=== PATIENT | female | born 1960 | race Caucasian/White ===

== ENCOUNTER 2021-10-23 18:38 | Inpatient (IN) ==
[2021-10-23] MEDS ORDERED: 0.9 % Sodium Chloride 2,000 ML ONE (18:56)
[2021-10-23] MEDS ORDERED: Heparin 1,000 UNITS/500 mL 500 ML ONE ×2 (18:56→19:30)
[2021-10-23] MEDS ORDERED: *HR* Heparin 10,000 UNIT/10 ML VIAL ONE ×2 (18:56→19:30)
[2021-10-23] MEDS ORDERED: ISOVUE-370 200 ML INFUS..BTL ONE ×2 (18:57→19:30)
[2021-10-23] MEDS ORDERED: Nitroglycerin 1,000 MCG/5 ML VIAL IV ONE ×2 (18:57→19:30)
[2021-10-23] MEDS ORDERED: 0.9 % Sodium Chloride 1,000 ML ONE ×2 (19:30→20:48)
[2021-10-23] MEDS ORDERED: *HR* FentaNYL (PF) 100 MCG/2 ML VIAL ONE (20:47)
[2021-10-23] MEDS ORDERED: *HR* Midazolam HCl 2 MG/2 ML VIAL ONE (20:48)
[2021-10-23] MEDS ORDERED: Naloxone 0.4 MG/ML INJ IVP PRN (22:01)
[2021-10-23] MEDS ORDERED: *HR* Heparin 5,000 UNIT/ML VIAL IVP PRN ×2 (22:03)
[2021-10-23] MEDS ORDERED: Perflutren Lipid Microsphere 1.3 ML in 0.9 % Sodium Chloride 8.7 ML IVP PRN (22:04)
[2021-10-23] MEDS ORDERED: *HR* Digoxin 0.5 MG/2 ML AMPUL IVP ONE (22:13)
[2021-10-23] MEDS: Ringers Solution, Lactated 1,000 ML IVC SCH (22:50)
[2021-10-23] MEDS: Melatonin 3 MG TABLET PO PRN (22:51)
[2021-10-23] MEDS: *HR* Promethazine 25 MG/ML VIAL IM PRN (22:51)
[2021-10-23] MEDS ORDERED: Haloperidol Lactate 5 MG/ML VIAL IVP ONE (23:27)
[2021-10-23] MEDS ORDERED: *HR* LORazepam 2 MG/ML VIAL IVP ONE (23:55)
[2021-10-24 03:00] LABS: Albumin 3.4 g/dL (3.5-5.7); Albumin/Globulin Ratio 1.1 (1.1-2.2); Bilirubin,Total 0.7 mg/dL (0.3-1.0); Globulin 3.1 g/dL (2.4-3.5); Magnesium 2.1 mg/dL (1.6-2.6); Phosphorous 3.2 mg/dL (2.7-4.5); Total Protein 6.5 g/dL (6.4-8.9)
[2021-10-24] MEDS: Heparin 25,000UNIT/250ML 1/2NS 25,000 UNIT/250 ML IV.SOLN IVC SCH ×2 (03:25→17:55)
[2021-10-24 04:07] LABS: Bacteria,Urine Few per hpf (None-Few); Bilirubin,Urine Negative (Negative); Blood,Urine Negative (Negative); Clarity,Urine Clear (Clear); Color,Urine Colorless (Yellow); Glucose,Urine (UA) Normal (Normal); Hyaline Casts,Urine Few per lpf (None Seen); Ketones,Urine Negative (Negative); Leukocyte Esterase,Urine Small (Negative); Mucus,Urine Few per lpf (None-Few); Nitrite,Urine Negative (Negative); Protein,Urine Trace mg/dL (Neg-Trace); RBC,Urine 0-3 per hpf (0-3); Specific Gravity,Urine 1.021 (1.010-1.025); Squamous Epithelial Cell,Urine Few per hpf (None-Few); Urobilinogen,Urine Normal (Normal)
[2021-10-24 04:15] LABS: Protein/Creatinine Ratio,Urine 0.55 mg/mg (0.00-0.20); Sodium, Urine 28.5 mEq/L
[2021-10-24] MEDS ORDERED: *HR* Digoxin 0.5 MG/2 ML AMPUL IVP ONE ×2 (06:00→14:00)
[2021-10-24] MEDS ORDERED: Ringers Solution, Lactated 1,000 ML IVC ONE (07:54)
[2021-10-24] MEDS: Potassium Chloride Elixir 20 MEQ/15 ML UDC PO SCH (08:27)
[2021-10-24] MEDS: Ringers Solution, Lactated 1,000 ML IVC SCH ×4 (08:28→17:58)
[2021-10-24 09:54] LABS: Thyroid Stimulating Hormone 3.657 mcIU/mL (0.340-5.600); Uric Acid 7.1 mg/dL (2.3-7.6)
[2021-10-24 10:28] LABS: Heparin anti-factor XA UFH 0.24 IU/mL (0.30-0.70); INR 1.1; Prothrombin Time 11.9 Seconds (9.4-12.1)
[2021-10-24 12:32] LABS: Basophils # 0.1 K/mcL (0.0-0.2); Basophils % 0.2 %; Eosinophils % 0.1 %; Hematocrit 33.4 % (35.3-44.9); Hemoglobin 11.8 g/dL (11.5-15.4); Immature Granulocytes % 1.5 % (0-4); Lymphocytes # 1.2 K/mcL (0.6-4.6); Lymphocytes % 5.6 %; Mean Corpuscular HGB Conc 35.3 g/dL (31.6-35.5); Mean Corpuscular Hemoglobin 32.7 pg (28.0-33.3); Mean Corpuscular Volume 92.5 fL (83.0-100.0); Mean Platelet Volume 12.1 fL (9.4-12.4); Monocytes # 1.1 K/mcL (0.0-1.3); Neutrophils # 18.9 K/mcL (1.6-8.9); Platelet Count 167 K/mcL (140-400); Red Blood Count 3.61 M/mcL (3.82-4.97); Red Cell Distribution Width 13.4 % (11.5-14.5); Segmented Neutrophils % 87.6 %; White Blood Count 21.6 K/mcL (4.3-11.1)
[2021-10-24] MEDS ORDERED: Saline Nasal Spray 44 ML BOTTLE NS PRN (13:51)
[2021-10-24] MEDS: Colchicine 0.6 MG TABLET PO SCH (14:52)
[2021-10-24] MEDS: Ondansetron 4 MG/2 ML VIAL IVP PRN (18:01)
[2021-10-24] MEDS: Melatonin 3 MG TABLET PO PRN (22:20)
[2021-10-25] MEDS: Acetaminophen 325 MG TABLET PO PRN (03:24)
[2021-10-25 03:46] LABS: Calcium 9.3 mg/dL (8.6-10.3); Potassium 4.5 mEq/L (3.5-5.1)
[2021-10-25 05:48] LABS: Basophils # 0.1 K/mcL (0.0-0.2); Basophils % 0.2 %; Eosinophils # 0.1 K/mcL (0.0-0.6); Eosinophils % 0.5 %; Hematocrit 28.1 % (35.3-44.9); Hemoglobin 10.1 g/dL (11.5-15.4); Lymphocytes # 2.1 K/mcL (0.6-4.6); Lymphocytes % 9.6 %; Mean Corpuscular HGB Conc 35.9 g/dL (31.6-35.5); Mean Corpuscular Hemoglobin 33.1 pg (28.0-33.3); Mean Corpuscular Volume 92.1 fL (83.0-100.0); Mean Platelet Volume 12.3 fL (9.4-12.4); Monocytes # 1.4 K/mcL (0.0-1.3); Monocytes % 6.3 %; Neutrophils # 17.7 K/mcL (1.6-8.9); Platelet Count 184 K/mcL (140-400); Red Blood Count 3.05 M/mcL (3.82-4.97); Red Cell Distribution Width 13.7 % (11.5-14.5); Segmented Neutrophils % 80.4 %
[2021-10-25] MEDS ORDERED: Ringers Solution, Lactated 500 ML IVC SCH (06:45)
[2021-10-25] MEDS: Aspirin Enteric Coated 81 MG Tablet PO SCH (09:38)
[2021-10-25] MEDS: Colchicine 0.6 MG TABLET PO SCH ×2 (09:38→21:52)
[2021-10-25] MEDS: Potassium Chloride Elixir 20 MEQ/15 ML UDC PO SCH (09:39)
[2021-10-25] MEDS: Ondansetron 4 MG/2 ML VIAL IVP PRN (09:41)
[2021-10-25] MEDS ORDERED: Dextrose Gel 15 GM/37.5 ML TUBE PO PRN ×2 (11:04)
[2021-10-25] MEDS ORDERED: D5% in Water 1,000 ML IVC PRN (11:04)
[2021-10-25] MEDS ORDERED: *HR* Dextrose 50 % in Water (Syg) 50 ML SYRINGE IVP PRN (11:04)
[2021-10-25] MEDS: Insulin LISPRO 300 UNITS/3 ML VIAL SUBQ SCH ×2 (13:06→16:51)
[2021-10-25] MEDS: allopurinoL 300 MG TABLET PO SCH (13:06)
[2021-10-25] MEDS: Heparin 25,000UNIT/250ML 1/2NS 25,000 UNIT/250 ML IV.SOLN IVC SCH (13:09)
[2021-10-25] MEDS: *HR* Promethazine 25 MG/ML VIAL IM PRN (21:51)
[2021-10-25] MEDS: traZODone 50 MG TABLET PO SCH (21:52)
[2021-10-25] MEDS: Melatonin 3 MG TABLET PO PRN (21:52)
[2021-10-26] MEDS: Acetaminophen 325 MG TABLET PO PRN (01:29)
[2021-10-26 05:01] LABS: Basophils # 0.1 K/mcL (0.0-0.2); Basophils % 0.3 %; Eosinophils # 0.1 K/mcL (0.0-0.6); Eosinophils % 0.6 %; Hematocrit 29.4 % (35.3-44.9); Hemoglobin 10.2 g/dL (11.5-15.4); Immature Granulocytes % 4.6 % (0-4); Lymphocytes # 2.3 K/mcL (0.6-4.6); Lymphocytes % 11.6 %; Mean Corpuscular HGB Conc 34.7 g/dL (31.6-35.5); Mean Corpuscular Hemoglobin 32.7 pg (28.0-33.3); Mean Corpuscular Volume 94.2 fL (83.0-100.0); Mean Platelet Volume 11.4 fL (9.4-12.4); Monocytes # 1.3 K/mcL (0.0-1.3); Monocytes % 6.8 %; Platelet Count 251 K/mcL (140-400); Red Blood Count 3.12 M/mcL (3.82-4.97); Red Cell Distribution Width 14.1 % (11.5-14.5); Segmented Neutrophils % 76.1 %; White Blood Count 19.7 K/mcL (4.3-11.1)
[2021-10-26 05:26] LABS: BUN/Creatinine Ratio 38 (6-26); Blood Urea Nitrogen 31 mg/dL (8-23); Calcium 9.3 mg/dL (8.6-10.3); Carbon Dioxide 24 mEq/L (23-29); Chloride 102 mEq/L (98-107); Glucose 226 mg/dL (70-105); Osmolality,Calculated 288 (280-300); Potassium 3.1 mEq/L (3.5-5.1); Sodium 132 mEq/L (136-145); eGFR For African Americans > 60 (> 60); eGFR For Non-African Americans > 60 (> 60)
[2021-10-26] MEDS: Heparin 25,000UNIT/250ML 1/2NS 25,000 UNIT/250 ML IV.SOLN IVC SCH ×2 (07:13→22:33)
[2021-10-26] MEDS: Colchicine 0.6 MG TABLET PO SCH (08:09)
[2021-10-26] MEDS: Insulin LISPRO 300 UNITS/3 ML VIAL SUBQ SCH ×3 (08:09→17:43)
[2021-10-26] MEDS: allopurinoL 300 MG TABLET PO SCH (08:10)
[2021-10-26] MEDS: Aspirin Enteric Coated 81 MG Tablet PO SCH (08:10)
[2021-10-26] MEDS ORDERED: Perflutren Lipid Microsphere 1.3 ML in 0.9 % Sodium Chloride 8.7 ML IVP PRN (08:41)
[2021-10-26] MEDS ORDERED: 0.9 % Sodium Chloride 1,000 ML IVC ONE (08:54)
[2021-10-26] MEDS ORDERED: Amiodarone Premix 360 MG/200 ML BAG IVC ONE (12:18)
[2021-10-26] MEDS ORDERED: Amiodarone Premix 150 MG/100 ML BAG IVPB ONE (12:34)
[2021-10-26] MEDS: Piperacillin/Tazobactam 3.375 GM in 0.9 % Sodium Chloride Mini Bag 100 ML IVPB SCH (15:11)
[2021-10-26] MEDS: Aspirin 325 MG TABLET PO SCH ×2 (15:12→20:18)
[2021-10-26] MEDS: Amiodarone Premix 360 MG/200 ML BAG IVC SCH ×2 (20:17→20:25)
[2021-10-26] MEDS: traZODone 50 MG TABLET PO SCH (20:20)
[2021-10-27] MEDS: Piperacillin/Tazobactam 3.375 GM in 0.9 % Sodium Chloride Mini Bag 100 ML IVPB SCH ×3 (00:31→15:20)
[2021-10-27] MEDS: Acetaminophen 325 MG TABLET PO PRN (00:57)
[2021-10-27] MEDS: Aspirin 325 MG TABLET PO SCH ×3 (07:59→21:13)
[2021-10-27] MEDS: allopurinoL 300 MG TABLET PO SCH (08:00)
[2021-10-27] MEDS: Insulin LISPRO 300 UNITS/3 ML VIAL SUBQ SCH ×3 (08:01→16:12)
[2021-10-27] MEDS: Amiodarone Premix 360 MG/200 ML BAG IVC SCH (09:11)
[2021-10-27 09:40] LABS: Basophils # 0.1 K/mcL (0.0-0.2); Basophils % 0.3 %; Eosinophils # 0.2 K/mcL (0.0-0.6); Eosinophils % 1.1 %; Hematocrit 30.7 % (35.3-44.9); Hemoglobin 10.4 g/dL (11.5-15.4); Immature Granulocytes % 3.5 % (0-4); Lymphocytes # 2.7 K/mcL (0.6-4.6); Lymphocytes % 12.3 %; Mean Corpuscular HGB Conc 33.9 g/dL (31.6-35.5); Mean Corpuscular Hemoglobin 32.3 pg (28.0-33.3); Mean Corpuscular Volume 95.3 fL (83.0-100.0); Mean Platelet Volume 11.1 fL (9.4-12.4); Monocytes % 4.8 %; Neutrophils # 16.9 K/mcL (1.6-8.9); Platelet Count 320 K/mcL (140-400); Red Blood Count 3.22 M/mcL (3.82-4.97); Red Cell Distribution Width 14.3 % (11.5-14.5); White Blood Count 21.7 K/mcL (4.3-11.1)
[2021-10-27 10:00] LABS: Alanine Aminotransferase 39 Units/L (7-52); Albumin 2.6 g/dL (3.5-5.7); Albumin/Globulin Ratio 0.9 (1.1-2.2); Alkaline Phosphatase 84 Units/L (34-104); Aspartate Amino Transferase 29 Units/L (13-39); BUN/Creatinine Ratio 27 (6-26); Bilirubin,Total 0.4 mg/dL (0.3-1.0); Blood Urea Nitrogen 23 mg/dL (8-23); Calcium 8.9 mg/dL (8.6-10.3); Carbon Dioxide 21 mEq/L (23-29); Chloride 100 mEq/L (98-107); Glucose 176 mg/dL (70-105); Magnesium 1.6 mg/dL (1.6-2.6); Osmolality,Calculated 276 (280-300); Potassium 3.9 mEq/L (3.5-5.1); Sodium 129 mEq/L (136-145); Total Protein 5.6 g/dL (6.4-8.9); eGFR For African Americans > 60 (> 60); eGFR For Non-African Americans > 60 (> 60)
[2021-10-27 10:30] LABS: Troponin I 0.06 ng/mL (< 0.04)
[2021-10-27 12:49] LABS: Adenovirus Not Detected (Not Detect); Bordetella Pertussis Not Detected (Not Detect); Chlamydophila pneumoniae Not Detected (Not Detect); Coronavirus 229E Not Detected (Not Detect); Coronavirus HKU1 Not Detected (Not Detect); Coronavirus NL63 Not Detected (Not Detect); Coronavirus OC43 Not Detected (Not Detect); Human Metapneumovirus Not Detected (Not Detect); Human Rhinovirus/Enterovirus Not Detected (Not Detect); Influenza A Subtype 2009 H1 Not Detected (Not Detect); Influenza B Not Detected (Not Detect); Mycoplasma pneumoniae Not Detected (Not Detect); Parainfluenza Virus 1 Not Detected (Not Detect); Parainfluenza Virus 2 Not Detected (Not Detect); Parainfluenza Virus 3 Not Detected (Not Detect); Parainfluenza Virus 4 Not Detected (Not Detect); Respiratory Syncytial Virus Not Detected (Not Detect); SARS-CoV-2 Not Detected (Not Detect)
[2021-10-27] MEDS: Heparin 25,000UNIT/250ML 1/2NS 25,000 UNIT/250 ML IV.SOLN IVC SCH (17:01)
[2021-10-27] MEDS: Ondansetron 4 MG/2 ML VIAL IVP PRN (18:10)
[2021-10-27] MEDS: traZODone 50 MG TABLET PO SCH (21:13)
[2021-10-28] MEDS: Amiodarone Premix 360 MG/200 ML BAG IVC SCH ×3 (00:10→23:38)
[2021-10-28] MEDS: Piperacillin/Tazobactam 3.375 GM in 0.9 % Sodium Chloride Mini Bag 100 ML IVPB SCH ×4 (00:11→23:37)
[2021-10-28] MEDS: Aspirin 325 MG TABLET PO SCH ×3 (07:41→20:43)
[2021-10-28] MEDS: allopurinoL 300 MG TABLET PO SCH (07:41)
[2021-10-28] MEDS: Insulin LISPRO 300 UNITS/3 ML VIAL SUBQ SCH ×3 (07:58→15:36)
[2021-10-28 10:32] LABS: Basophils # 0.1 K/mcL (0.0-0.2); Basophils % 0.4 %; Eosinophils # 0.2 K/mcL (0.0-0.6); Eosinophils % 0.9 %; Hematocrit 30.8 % (35.3-44.9); Hemoglobin 10.4 g/dL (11.5-15.4); Immature Granulocytes % 2.9 % (0-4); Lymphocytes % 9.4 %; Mean Corpuscular HGB Conc 33.8 g/dL (31.6-35.5); Mean Corpuscular Hemoglobin 32.7 pg (28.0-33.3); Mean Corpuscular Volume 96.9 fL (83.0-100.0); Monocytes % 4.7 %; Neutrophils # 17.4 K/mcL (1.6-8.9); Platelet Count 395 K/mcL (140-400); Red Blood Count 3.18 M/mcL (3.82-4.97); Red Cell Distribution Width 14.3 % (11.5-14.5); Segmented Neutrophils % 81.7 %; White Blood Count 21.3 K/mcL (4.3-11.1)
[2021-10-28 10:57] LABS: BUN/Creatinine Ratio 21 (6-26); Blood Urea Nitrogen 15 mg/dL (8-23); Carbon Dioxide 23 mEq/L (23-29); Chloride 104 mEq/L (98-107); Glucose 174 mg/dL (70-105); Osmolality,Calculated 283 (280-300); Potassium 3.4 mEq/L (3.5-5.1); Sodium 134 mEq/L (136-145); eGFR For African Americans > 60 (> 60); eGFR For Non-African Americans > 60 (> 60)
[2021-10-28] MEDS: Ondansetron 4 MG/2 ML VIAL IVP PRN (13:30)
[2021-10-28] MEDS: Heparin 25,000UNIT/250ML 1/2NS 25,000 UNIT/250 ML IV.SOLN IVC SCH (13:35)
[2021-10-28 14:35] LABS: Magnesium 1.8 mg/dL (1.6-2.6)
[2021-10-28] MEDS: traZODone 50 MG TABLET PO SCH (20:43)
[2021-10-29] MEDS: allopurinoL 300 MG TABLET PO SCH (08:37)
[2021-10-29] MEDS: Acetaminophen 325 MG TABLET PO PRN (08:37)
[2021-10-29] MEDS: Aspirin 325 MG TABLET PO SCH ×3 (08:38→20:03)
[2021-10-29] MEDS: Piperacillin/Tazobactam 3.375 GM in 0.9 % Sodium Chloride Mini Bag 100 ML IVPB SCH ×2 (08:38→15:44)
[2021-10-29] MEDS: Insulin LISPRO 300 UNITS/3 ML VIAL SUBQ SCH ×3 (08:39→17:17)
[2021-10-29] MEDS: Ondansetron 4 MG/2 ML VIAL IVP PRN (08:40)
[2021-10-29] MEDS ORDERED: *HR* Digoxin 0.5 MG/2 ML AMPUL IVP ONE (08:45)
[2021-10-29] MEDS ORDERED: *HR* LORazepam 0.5 MG TABLET PO ONE (09:34)
[2021-10-29] MEDS: polyethylene glycoL 3350 17 GM POWD.PACK PO SCH (10:02)
[2021-10-29 11:08] LABS: Hemoglobin 10.5 g/dL (11.5-15.4); Mean Corpuscular Volume 97.2 fL (83.0-100.0); Mean Platelet Volume 10.5 fL (9.4-12.4); Red Cell Distribution Width 14.6 % (11.5-14.5)
[2021-10-29 11:09] LABS: Mean Corpuscular HGB Conc 33.9 g/dL (31.6-35.5); Mean Corpuscular Hemoglobin 32.9 pg (28.0-33.3); Platelet Count 520 K/mcL (140-400); Red Blood Count 3.19 M/mcL (3.82-4.97)
[2021-10-29 11:16] LABS: White Blood Count 30.1 K/mcL (4.3-11.1)
[2021-10-29 11:40] LABS: Alanine Aminotransferase 68 Units/L (7-52); Albumin 2.8 g/dL (3.5-5.7); Albumin/Globulin Ratio 0.8 (1.1-2.2); Alkaline Phosphatase 98 Units/L (34-104); Aspartate Amino Transferase 49 Units/L (13-39); BUN/Creatinine Ratio 16 (6-26); Bilirubin,Total 0.5 mg/dL (0.3-1.0); Blood Urea Nitrogen 14 mg/dL (8-23); Calcium 8.7 mg/dL (8.6-10.3); Carbon Dioxide 18 mEq/L (23-29); Chloride 99 mEq/L (98-107); Globulin 3.4 g/dL (2.4-3.5); Glucose 225 mg/dL (70-105); Magnesium 1.7 mg/dL (1.6-2.6); Osmolality,Calculated 276 (280-300); Potassium 4.3 mEq/L (3.5-5.1); Sodium 129 mEq/L (136-145); Total Protein 6.2 g/dL (6.4-8.9); eGFR For African Americans > 60 (> 60); eGFR For Non-African Americans > 60 (> 60)
[2021-10-29 11:41] LABS: Lymphocytes # 0.6 K/mcL (0.6-4.6); Neutrophils # 25.9 K/mcL (1.6-8.9); Platelet Estimate Increased (Normal)
[2021-10-29] MEDS: *HR* Digoxin 0.5 MG/2 ML AMPUL IVP SCH ×2 (14:14→20:03)
[2021-10-29] MEDS ORDERED: Furosemide 20 MG/2 ML VIAL IVP ONE (15:09)
[2021-10-29] MEDS: Heparin 25,000UNIT/250ML 1/2NS 25,000 UNIT/250 ML IV.SOLN IVC SCH (19:50)
[2021-10-29] MEDS: Melatonin 3 MG TABLET PO PRN (20:03)
[2021-10-29] MEDS: traZODone 50 MG TABLET PO SCH (20:03)
[2021-10-30] MEDS: Piperacillin/Tazobactam 3.375 GM in 0.9 % Sodium Chloride Mini Bag 100 ML IVPB SCH (00:58)
[2021-10-30 01:11] LABS: Basophils % 0.3 %; Eosinophils % 0.2 %; Hemoglobin 10.6 g/dL (11.5-15.4); Mean Platelet Volume 10.3 fL (9.4-12.4)
[2021-10-30 01:12] LABS: Basophils # 0.1 K/mcL (0.0-0.2); Eosinophils # 0.1 K/mcL (0.0-0.6); Hematocrit 30.9 % (35.3-44.9); Immature Granulocytes % 1.6 % (0-4); Lymphocytes # 2.2 K/mcL (0.6-4.6); Lymphocytes % 6.2 %; Mean Corpuscular HGB Conc 34.3 g/dL (31.6-35.5); Mean Corpuscular Hemoglobin 33.2 pg (28.0-33.3); Mean Corpuscular Volume 96.9 fL (83.0-100.0); Monocytes # 1.2 K/mcL (0.0-1.3); Monocytes % 3.4 %; Platelet Count 543 K/mcL (140-400); Red Blood Count 3.19 M/mcL (3.82-4.97); Red Cell Distribution Width 14.5 % (11.5-14.5); Segmented Neutrophils % 88.3 %
[2021-10-30 01:16] LABS: White Blood Count 35.1 K/mcL (4.3-11.1)
[2021-10-30 01:36] LABS: BUN/Creatinine Ratio 20 (6-26); Blood Urea Nitrogen 16 mg/dL (8-23); Calcium 8.5 mg/dL (8.6-10.3); Carbon Dioxide 18 mEq/L (23-29); Chloride 97 mEq/L (98-107); Glucose 121 mg/dL (70-105); Osmolality,Calculated 258 (280-300); Potassium 4.2 mEq/L (3.5-5.1); Sodium 123 mEq/L (136-145); eGFR For African Americans > 60 (> 60); eGFR For Non-African Americans > 60 (> 60)
[2021-10-30] MEDS: Heparin 25,000UNIT/250ML 1/2NS 25,000 UNIT/250 ML IV.SOLN IVC SCH (02:34)
[2021-10-30] MEDS: Aspirin 325 MG TABLET PO SCH (08:22)
[2021-10-30] MEDS: cefTRIAXone 2,000 MG in 0.9 % Sodium Chloride Mini Bag 100 ML IVPB SCH (08:23)
[2021-10-30] MEDS: allopurinoL 300 MG TABLET PO SCH (08:23)
[2021-10-30] MEDS ORDERED: *HR* Digoxin 0.125 MG TABLET PO SCH (09:00)
[2021-10-30 09:04] LABS: VBG HCO3 19 mEq/L (21-27); VBG PCO2 29 mmHg (41-51); VBG PH 7.41 pH Units (7.32-7.42); VBG PO2 171 mmHg (25-50)
[2021-10-30 09:23] LABS: BUN/Creatinine Ratio 21 (6-26); Blood Urea Nitrogen 16 mg/dL (8-23); Calcium 8.8 mg/dL (8.6-10.3); Carbon Dioxide 20 mEq/L (23-29); Chloride 99 mEq/L (98-107); Glucose 110 mg/dL (70-105); Osmolality,Calculated 268 (280-300); Potassium 4.6 mEq/L (3.5-5.1); Sodium 128 mEq/L (136-145); eGFR For African Americans > 60 (> 60); eGFR For Non-African Americans > 60 (> 60)
[2021-10-30] MEDS: Insulin LISPRO 300 UNITS/3 ML VIAL SUBQ SCH ×3 (09:35→17:10)
[2021-10-30 12:25] LABS: C-Reactive Protein 265 mg/L (Less than 10)
[2021-10-30] MEDS: polyethylene glycoL 3350 17 GM POWD.PACK PO SCH (13:17)
[2021-10-30] MEDS: *HR* Heparin 5,000 UNIT/ML VIAL SQ SCH (17:05)
[2021-10-30] MEDS: Ipratropium/Albuterol Neb 3 ML IH PRN (17:40)
[2021-10-30 17:44] LABS: ABG Base Excess -5 mEq/L (-2 to 3); ABG HCO3 18 mEq/L (21-27); ABG Oxygen Saturation 96 % (95-98); ABG PCO2 24 mmHg (35-45); ABG PH 7.48 pH Units (7.32-7.45); ABG PO2 72 mmHg (85-104); ABG TCO2 18 mEq/L (20-26)
[2021-10-30] MEDS: Colchicine 0.6 MG TABLET PO SCH (20:54)
[2021-10-30] MEDS: traZODone 50 MG TABLET PO SCH (20:54)
[2021-10-30] MEDS: Acetaminophen 325 MG TABLET PO PRN (20:54)
[2021-10-30] MEDS: Melatonin 3 MG TABLET PO PRN (20:54)
[2021-10-31] MEDS: Ipratropium/Albuterol Neb 3 ML IH PRN (00:32)
[2021-10-31 00:34] LABS: ABG Base Excess -4 mEq/L (-2 to 3); ABG HCO3 19 mEq/L (21-27); ABG Oxygen Saturation 96 % (95-98); ABG PCO2 26 mmHg (35-45); ABG PH 7.47 pH Units (7.32-7.45); ABG PO2 76 mmHg (85-104); ABG TCO2 20 mEq/L (20-26)
[2021-10-31 04:25] LABS: Basophils # 0.1 K/mcL (0.0-0.2); Basophils % 0.3 %; Eosinophils # 0.1 K/mcL (0.0-0.6); Eosinophils % 0.5 %; Hematocrit 30.6 % (35.3-44.9); Hemoglobin 10.3 g/dL (11.5-15.4); Immature Granulocytes % 1.5 % (0-4); Lymphocytes # 1.9 K/mcL (0.6-4.6); Lymphocytes % 8.6 %; Mean Corpuscular HGB Conc 33.7 g/dL (31.6-35.5); Mean Corpuscular Hemoglobin 32.6 pg (28.0-33.3); Mean Corpuscular Volume 96.8 fL (83.0-100.0); Mean Platelet Volume 10.1 fL (9.4-12.4); Monocytes % 4.3 %; Neutrophils # 18.8 K/mcL (1.6-8.9); Platelet Count 619 K/mcL (140-400); Red Blood Count 3.16 M/mcL (3.82-4.97); Red Cell Distribution Width 14.6 % (11.5-14.5); Segmented Neutrophils % 84.8 %; White Blood Count 22.2 K/mcL (4.3-11.1)
[2021-10-31 04:35] LABS: INR 1.4
[2021-10-31 04:43] LABS: Alanine Aminotransferase 216 Units/L (7-52); Albumin 2.6 g/dL (3.5-5.7); Albumin/Globulin Ratio 0.8 (1.1-2.2); Alkaline Phosphatase 90 Units/L (34-104); Aspartate Amino Transferase 90 Units/L (13-39); BUN/Creatinine Ratio 25 (6-26); Bilirubin,Direct 0.1 mg/dL (0.0-0.2); Bilirubin,Indirect 0.3 mg/dL (0.0-1.0); Bilirubin,Total 0.4 mg/dL (0.3-1.0); Blood Urea Nitrogen 20 mg/dL (8-23); Calcium 8.3 mg/dL (8.6-10.3); Carbon Dioxide 22 mEq/L (23-29); Chloride 98 mEq/L (98-107); Globulin 3.1 g/dL (2.4-3.5); Glucose 154 mg/dL (70-105); Osmolality,Calculated 266 (280-300); Potassium 4.4 mEq/L (3.5-5.1); Sodium 125 mEq/L (136-145); Total Protein 5.7 g/dL (6.4-8.9); eGFR For African Americans > 60 (> 60); eGFR For Non-African Americans > 60 (> 60)
[2021-10-31] MEDS: *HR* Heparin 5,000 UNIT/ML VIAL SQ SCH ×2 (05:09→17:27)
[2021-10-31] MEDS: polyethylene glycoL 3350 17 GM POWD.PACK PO SCH (09:12)
[2021-10-31] MEDS: allopurinoL 300 MG TABLET PO SCH (09:12)
[2021-10-31] MEDS: Colchicine 0.6 MG TABLET PO SCH ×2 (09:12→21:43)
[2021-10-31] MEDS: cefTRIAXone 2,000 MG in 0.9 % Sodium Chloride Mini Bag 100 ML IVPB SCH (09:12)
[2021-10-31] MEDS: Aspirin 81 MG TAB.CHEW PO SCH (09:12)
[2021-10-31] MEDS: Insulin LISPRO 300 UNITS/3 ML VIAL SUBQ SCH ×3 (09:14→17:27)
[2021-10-31] MEDS ORDERED: Perflutren Lipid Microsphere 1.3 ML in 0.9 % Sodium Chloride 8.7 ML IVP PRN (13:57)
[2021-10-31] MEDS: Furosemide 40 MG TABLET PO SCH (15:29)
[2021-10-31] MEDS: Ipratropium/Albuterol Neb 3 ML IH SCH ×2 (15:41→20:26)
[2021-10-31] MEDS: Melatonin 3 MG TABLET PO PRN (21:43)
[2021-10-31] MEDS: traZODone 50 MG TABLET PO SCH (21:43)
[2021-10-31] MEDS: Acetaminophen 325 MG TABLET PO PRN (22:36)
[2021-11-01] MEDS: Ipratropium/Albuterol Neb 3 ML IH SCH ×4 (05:01→20:58)
[2021-11-01] MEDS: *HR* Heparin 5,000 UNIT/ML VIAL SQ SCH ×2 (05:24→19:13)
[2021-11-01 05:55] LABS: Basophils # 0.1 K/mcL (0.0-0.2); Basophils % 0.3 %; Eosinophils # 0.1 K/mcL (0.0-0.6); Eosinophils % 0.8 %; Hematocrit 30.8 % (35.3-44.9); Hemoglobin 10.3 g/dL (11.5-15.4); Immature Granulocytes % 1.7 % (0-4); Lymphocytes # 1.7 K/mcL (0.6-4.6); Lymphocytes % 9.3 %; Mean Corpuscular HGB Conc 33.4 g/dL (31.6-35.5); Mean Corpuscular Volume 98.7 fL (83.0-100.0); Mean Platelet Volume 9.6 fL (9.4-12.4); Monocytes # 1.4 K/mcL (0.0-1.3); Monocytes % 7.7 %; Neutrophils # 14.3 K/mcL (1.6-8.9); Platelet Count 631 K/mcL (140-400); Red Blood Count 3.12 M/mcL (3.82-4.97); Red Cell Distribution Width 14.6 % (11.5-14.5); Segmented Neutrophils % 80.2 %; White Blood Count 17.8 K/mcL (4.3-11.1)
[2021-11-01 06:05] LABS: BUN/Creatinine Ratio 22 (6-26); Blood Urea Nitrogen 14 mg/dL (8-23); Calcium 8.7 mg/dL (8.6-10.3); Carbon Dioxide 24 mEq/L (23-29); Chloride 102 mEq/L (98-107); Glucose 150 mg/dL (70-105); Osmolality,Calculated 277 (280-300); Sodium 132 mEq/L (136-145); eGFR For African Americans > 60 (> 60); eGFR For Non-African Americans > 60 (> 60)
[2021-11-01] MEDS: polyethylene glycoL 3350 17 GM POWD.PACK PO SCH (09:02)
[2021-11-01] MEDS: Furosemide 40 MG TABLET PO SCH (09:03)
[2021-11-01] MEDS: cefTRIAXone 2,000 MG in 0.9 % Sodium Chloride Mini Bag 100 ML IVPB SCH (09:04)
[2021-11-01] MEDS: allopurinoL 300 MG TABLET PO SCH (09:04)
[2021-11-01] MEDS: Insulin LISPRO 300 UNITS/3 ML VIAL SUBQ SCH ×3 (09:04→17:22)
[2021-11-01] MEDS: Colchicine 0.6 MG TABLET PO SCH ×2 (09:04→21:48)
[2021-11-01] MEDS: Aspirin 81 MG TAB.CHEW PO SCH (09:04)
[2021-11-01] MEDS: traZODone 50 MG TABLET PO SCH (21:49)
[2021-11-01] MEDS: Melatonin 3 MG TABLET PO PRN (22:26)
[2021-11-01] MEDS: Acetaminophen 325 MG TABLET PO PRN (22:26)
[2021-11-02 02:37] LABS: Basophils # 0.1 K/mcL (0.0-0.2); Basophils % 0.4 %; Eosinophils # 0.1 K/mcL (0.0-0.6); Eosinophils % 0.5 %; Hematocrit 29.1 % (35.3-44.9); Hemoglobin 9.6 g/dL (11.5-15.4); Immature Granulocytes % 1.2 % (0-4); Lymphocytes # 2.2 K/mcL (0.6-4.6); Mean Corpuscular Hemoglobin 31.9 pg (28.0-33.3); Mean Corpuscular Volume 96.7 fL (83.0-100.0); Mean Platelet Volume 9.4 fL (9.4-12.4); Monocytes # 1.4 K/mcL (0.0-1.3); Monocytes % 7.7 %; Platelet Count 657 K/mcL (140-400); Red Blood Count 3.01 M/mcL (3.82-4.97); Red Cell Distribution Width 14.6 % (11.5-14.5); Segmented Neutrophils % 78.2 %; White Blood Count 17.9 K/mcL (4.3-11.1)
[2021-11-02 02:54] LABS: BUN/Creatinine Ratio 20 (6-26); Blood Urea Nitrogen 12 mg/dL (8-23); Calcium 8.3 mg/dL (8.6-10.3); Carbon Dioxide 24 mEq/L (23-29); Chloride 102 mEq/L (98-107); Glucose 170 mg/dL (70-105); Osmolality,Calculated 278 (280-300); Potassium 4.1 mEq/L (3.5-5.1); Sodium 132 mEq/L (136-145); eGFR For African Americans > 60 (> 60); eGFR For Non-African Americans > 60 (> 60)
[2021-11-02] MEDS: Ipratropium/Albuterol Neb 3 ML IH SCH ×2 (03:47→10:50)
[2021-11-02] MEDS: *HR* Heparin 5,000 UNIT/ML VIAL SQ SCH ×2 (05:35→17:20)
[2021-11-02] MEDS: Insulin LISPRO 300 UNITS/3 ML VIAL SUBQ SCH ×3 (08:55→16:41)
[2021-11-02] MEDS: Furosemide 40 MG TABLET PO SCH (09:06)
[2021-11-02] MEDS: Aspirin 81 MG TAB.CHEW PO SCH (09:06)
[2021-11-02] MEDS: Colchicine 0.6 MG TABLET PO SCH ×2 (09:06→21:19)
[2021-11-02] MEDS: allopurinoL 300 MG TABLET PO SCH (09:06)
[2021-11-02] MEDS: cefTRIAXone 2,000 MG in 0.9 % Sodium Chloride Mini Bag 100 ML IVPB SCH (09:07)
[2021-11-02] MEDS: polyethylene glycoL 3350 17 GM POWD.PACK PO SCH (09:07)
[2021-11-02] MEDS: traZODone 50 MG TABLET PO SCH (21:20)
[2021-11-03] MEDS: *HR* Heparin 5,000 UNIT/ML VIAL SQ SCH ×3 (04:21→20:17)
[2021-11-03] MEDS: Acetaminophen 325 MG TABLET PO PRN ×2 (04:23→19:28)
[2021-11-03 05:23] LABS: Basophils # 0.1 K/mcL (0.0-0.2); Basophils % 0.5 %; Eosinophils # 0.1 K/mcL (0.0-0.6); Eosinophils % 0.9 %; Hematocrit 30.1 % (35.3-44.9); Hemoglobin 9.8 g/dL (11.5-15.4); Immature Granulocytes % 1.6 % (0-4); Lymphocytes # 1.9 K/mcL (0.6-4.6); Lymphocytes % 14.8 %; Mean Corpuscular HGB Conc 32.6 g/dL (31.6-35.5); Mean Corpuscular Hemoglobin 32.3 pg (28.0-33.3); Mean Corpuscular Volume 99.3 fL (83.0-100.0); Monocytes # 1.1 K/mcL (0.0-1.3); Monocytes % 8.5 %; Neutrophils # 9.4 K/mcL (1.6-8.9); Platelet Count 672 K/mcL (140-400); Red Blood Count 3.03 M/mcL (3.82-4.97); Segmented Neutrophils % 73.7 %; White Blood Count 12.7 K/mcL (4.3-11.1)
[2021-11-03 05:45] LABS: Alanine Aminotransferase 76 Units/L (7-52); Aspartate Amino Transferase 24 Units/L (13-39); BUN/Creatinine Ratio 24 (6-26); Blood Urea Nitrogen 12 mg/dL (8-23); Calcium 8.8 mg/dL (8.6-10.3); Carbon Dioxide 26 mEq/L (23-29); Chloride 105 mEq/L (98-107); Glucose 138 mg/dL (70-105); Osmolality,Calculated 286 (280-300); Potassium 3.7 mEq/L (3.5-5.1); Sodium 137 mEq/L (136-145); eGFR For African Americans > 60 (> 60); eGFR For Non-African Americans > 60 (> 60)
[2021-11-03] MEDS: cefTRIAXone 2,000 MG in 0.9 % Sodium Chloride Mini Bag 100 ML IVPB SCH (08:25)
[2021-11-03] MEDS: Furosemide 40 MG TABLET PO SCH (08:25)
[2021-11-03] MEDS: allopurinoL 300 MG TABLET PO SCH (08:25)
[2021-11-03] MEDS: Colchicine 0.6 MG TABLET PO SCH ×2 (08:25→20:16)
[2021-11-03] MEDS: Aspirin 81 MG TAB.CHEW PO SCH (08:25)
[2021-11-03] MEDS: Insulin LISPRO 300 UNITS/3 ML VIAL SUBQ SCH ×3 (08:25→15:19)
[2021-11-03] MEDS: polyethylene glycoL 3350 17 GM POWD.PACK PO SCH (08:26)
[2021-11-03 13:34] LABS: INR 1.2; Prothrombin Time 13.7 Seconds (9.4-12.1)
[2021-11-03 13:37] LABS: Activated Partial Thrombo Time 26.5 Seconds (26.0-36.0)
[2021-11-03 13:49] LABS: Estimated Average Glucose 146 mg/dl; Hemoglobin A1C 6.7 %
[2021-11-03] MEDS ORDERED: Buckersberg's Blood Cardioplegia PF SCH (14:45)
[2021-11-03 14:52] LABS: Chol/HDL Ratio 2.4 (0-4.9)
[2021-11-03] MEDS: Chlorhexidine Rinse 15 ML MOUTHWASH MM SCH (20:10)
[2021-11-03] MEDS: traZODone 50 MG TABLET PO SCH (20:16)
[2021-11-04 02:54] LABS: Basophils # 0.1 K/mcL (0.0-0.2); Basophils % 0.5 %; Eosinophils # 0.1 K/mcL (0.0-0.6); Eosinophils % 1.1 %; Hematocrit 31.5 % (35.3-44.9); Hemoglobin 10.3 g/dL (11.5-15.4); Immature Granulocytes % 1.2 % (0-4); Lymphocytes # 2.4 K/mcL (0.6-4.6); Lymphocytes % 18.8 %; Mean Corpuscular HGB Conc 32.7 g/dL (31.6-35.5); Mean Corpuscular Hemoglobin 32.3 pg (28.0-33.3); Mean Corpuscular Volume 98.7 fL (83.0-100.0); Monocytes # 0.9 K/mcL (0.0-1.3); Monocytes % 7.2 %; Neutrophils # 9.2 K/mcL (1.6-8.9); Platelet Count 682 K/mcL (140-400); Red Blood Count 3.19 M/mcL (3.82-4.97); Red Cell Distribution Width 14.6 % (11.5-14.5); Segmented Neutrophils % 71.2 %; White Blood Count 12.9 K/mcL (4.3-11.1)
[2021-11-04 03:50] LABS: BUN/Creatinine Ratio 27 (6-26); Blood Urea Nitrogen 13 mg/dL (8-23); Calcium 8.9 mg/dL (8.6-10.3); Carbon Dioxide 24 mEq/L (23-29); Chloride 103 mEq/L (98-107); Glucose 154 mg/dL (70-105); Osmolality,Calculated 283 (280-300); Potassium 3.5 mEq/L (3.5-5.1); Sodium 135 mEq/L (136-145); eGFR For African Americans > 60 (> 60); eGFR For Non-African Americans > 60 (> 60)
[2021-11-04] MEDS: Chlorhexidine Rinse 15 ML MOUTHWASH MM SCH ×2 (05:44→21:32)
[2021-11-04] MEDS: *HR* Heparin 5,000 UNIT/ML VIAL SQ SCH ×3 (05:59→21:32)
[2021-11-04] MEDS ORDERED: Aspirin 81 MG TAB.CHEW PO ONE (06:00)
[2021-11-04] MEDS ORDERED: Papaverine 60 MG/2 ML VIAL IVP ONE (06:10)
[2021-11-04] MEDS ORDERED: NiCARdipine 2.5 MG/10 ML Syringe IVPB ONE (06:30)
[2021-11-04] MEDS ORDERED: *HR* Vasopressin 20 UNIT/ML VIAL ONE (06:30)
[2021-11-04] MEDS ORDERED: *HR* Midazolam HCl 5 MG/5 ML VIAL IVP ONE (06:47)
[2021-11-04] MEDS ORDERED: *HR* FentaNYL (PF) 1,000 MCG/20 ML VIAL ONE (06:47)
[2021-11-04] MEDS ORDERED: *HR* Propofol 200 MG/20 ML VIAL IVP ONE (06:47)
[2021-11-04] MEDS ORDERED: *HR* Magnesium Sulfate 1 GM/2 ML VIAL ONE (06:48)
[2021-11-04] MEDS ORDERED: Famotidine 20 MG/2 ML VIAL ONE (06:48)
[2021-11-04] MEDS ORDERED: *HR* Rocuronium Bromide 50 MG/5 ML VIAL ONE ×3 (06:48→13:05)
[2021-11-04] MEDS ORDERED: Tranexamic Acid 1,000 MG/10 ML VIAL ONE (06:49)
[2021-11-04] MEDS ORDERED: Lidocaine 2% Syringe 100 MG/5 ML ONE (06:49)
[2021-11-04] MEDS ORDERED: Buckersberg's Blood Cardioplegia PF SCH ×2 (08:00)
[2021-11-04 08:34] LABS: ABG Base Excess 1 mEq/L (-2 to 3); ABG Chloride 102 mEq/L (98-107); ABG Glucose 138 mg/dL (60-95); ABG HCO3 29 mEq/L (21-27); ABG Ionized Calcium 1.34 mmol/L (1.15-1.35); ABG Oxygen Saturation 93 % (95-98); ABG PCO2 64 mmHg (35-45); ABG PH 7.26 pH Units (7.32-7.45); ABG PO2 78 mmHg (85-104); ABG TCO2 31 mEq/L (20-26)
[2021-11-04] MEDS: cefTRIAXone 2,000 MG in 0.9 % Sodium Chloride Mini Bag 100 ML IVPB SCH (09:05)
[2021-11-04] MEDS ORDERED: Vancomycin 1,000 MG VIAL ONE (09:17)
[2021-11-04 10:47] LABS: ABG Base Excess 0 mEq/L (-2 to 3); ABG Chloride 105 mEq/L (98-107); ABG Glucose 195 mg/dL (60-95); ABG HCO3 27 mEq/L (21-27); ABG Ionized Calcium 1.21 mmol/L (1.15-1.35); ABG Oxygen Saturation 82 % (95-98); ABG PCO2 53 mmHg (35-45); ABG PH 7.31 pH Units (7.32-7.45); ABG PO2 52 mmHg (85-104); ABG TCO2 29 mEq/L (20-26)
[2021-11-04 11:21] LABS: ABG Base Excess 0 mEq/L (-2 to 3); ABG Chloride 101 mEq/L (98-107); ABG Glucose 208 mg/dL (60-95); ABG HCO3 27 mEq/L (21-27); ABG Ionized Calcium 1.25 mmol/L (1.15-1.35); ABG Oxygen Saturation 83 % (95-98); ABG PCO2 50 mmHg (35-45); ABG PH 7.33 pH Units (7.32-7.45); ABG PO2 51 mmHg (85-104); ABG TCO2 28 mEq/L (20-26)
[2021-11-04 13:05] LABS: ABG Base Excess 0 mEq/L (-2 to 3); ABG Chloride 103 mEq/L (98-107); ABG Glucose 237 mg/dL (60-95); ABG HCO3 25 mEq/L (21-27); ABG Ionized Calcium 1.21 mmol/L (1.15-1.35); ABG Oxygen Saturation 81 % (95-98); ABG PCO2 43 mmHg (35-45); ABG PH 7.38 pH Units (7.32-7.45); ABG PO2 46 mmHg (85-104); ABG TCO2 27 mEq/L (20-26)
[2021-11-04 14:03] LABS: ABG Base Excess 0 mEq/L (-2 to 3); ABG Chloride 103 mEq/L (98-107); ABG Glucose 215 mg/dL (60-95); ABG HCO3 25 mEq/L (21-27); ABG Ionized Calcium 1.21 mmol/L (1.15-1.35); ABG Oxygen Saturation 93 % (95-98); ABG PCO2 40 mmHg (35-45); ABG PO2 68 mmHg (85-104); ABG TCO2 26 mEq/L (20-26)
[2021-11-04 14:30] LABS: ABG Base Excess 0 mEq/L (-2 to 3); ABG Chloride 104 mEq/L (98-107); ABG Glucose 227 mg/dL (60-95); ABG HCO3 25 mEq/L (21-27); ABG Ionized Calcium 1.17 mmol/L (1.15-1.35); ABG Oxygen Saturation 98 % (95-98); ABG PCO2 39 mmHg (35-45); ABG PH 7.41 pH Units (7.32-7.45); ABG PO2 110 mmHg (85-104); ABG TCO2 26 mEq/L (20-26)
[2021-11-04] MEDS ORDERED: *HR* Heparin 10,000 UNIT/10 ML VIAL IR ONE (15:05)
[2021-11-04] MEDS ORDERED: Heparin 1,000 UNITS/500 mL IV.SOLN IR ONE (15:05)
[2021-11-04 15:19] LABS: ABG Base Excess -2 mEq/L (-2 to 3); ABG Chloride 101 mEq/L (98-107); ABG Glucose 211 mg/dL (60-95); ABG HCO3 23 mEq/L (21-27); ABG Ionized Calcium 1.21 mmol/L (1.15-1.35); ABG Oxygen Saturation 96 % (95-98); ABG PCO2 39 mmHg (35-45); ABG PH 7.38 pH Units (7.32-7.45); ABG PO2 84 mmHg (85-104); ABG TCO2 24 mEq/L (20-26)
[2021-11-04] MEDS ORDERED: Insulin Regular, Human 100 UNIT/ML IV PRN (16:19)
[2021-11-04] MEDS ORDERED: *HR* Dextrose 50 % in Water (Syg) 50 ML SYRINGE IVP PRN (16:19)
[2021-11-04] MEDS: Norepinephrine 4 MG/254 ML IV.SOLN IVC SCH (16:25)
[2021-11-04 16:58] LABS: ABG Base Excess -1 mEq/L (-2 to 3); ABG HCO3 24 mEq/L (21-27); ABG Oxygen Saturation 92 % (95-98); ABG PCO2 38 mmHg (35-45); ABG PH 7.41 pH Units (7.32-7.45); ABG PO2 63 mmHg (85-104); ABG TCO2 25 mEq/L (20-26); Blood Gas Modality ASSIST CONTROL; Blood Gas VT 550 cc
[2021-11-04 17:04] LABS: Eosinophils % 0.2 %
[2021-11-04 17:05] LABS: Basophils # 0.1 K/mcL (0.0-0.2); Basophils % 0.4 %; Eosinophils # 0.1 K/mcL (0.0-0.6); Hematocrit 27.5 % (35.3-44.9); Hemoglobin 9.3 g/dL (11.5-15.4); Immature Granulocytes % 3.2 % (0-4); Lymphocytes # 2.5 K/mcL (0.6-4.6); Lymphocytes % 8.7 %; Mean Corpuscular HGB Conc 33.8 g/dL (31.6-35.5); Mean Corpuscular Hemoglobin 33.1 pg (28.0-33.3); Mean Corpuscular Volume 97.9 fL (83.0-100.0); Monocytes # 1.7 K/mcL (0.0-1.3); Monocytes % 6.1 %; Neutrophils # 23.2 K/mcL (1.6-8.9); Platelet Count 554 K/mcL (140-400); Red Blood Count 2.81 M/mcL (3.82-4.97); Red Cell Distribution Width 14.6 % (11.5-14.5); Segmented Neutrophils % 81.4 %; White Blood Count 28.5 K/mcL (4.3-11.1)
[2021-11-04] MEDS: Midazolam HCl 50 MG/100 ML IV.SOLN IVC SCH (17:05)
[2021-11-04] MEDS: FentaNYL (PF) 1,000 MCG/100 ML IV.SOLN IVC SCH (17:05)
[2021-11-04 17:11] LABS: INR 1.6; Prothrombin Time 17.7 Seconds (9.4-12.1)
[2021-11-04 17:14] LABS: Activated Partial Thrombo Time 23.6 Seconds (26.0-36.0)
[2021-11-04 17:30] LABS: BUN/Creatinine Ratio 33 (6-26); Blood Urea Nitrogen 15 mg/dL (8-23); Calcium 7.6 mg/dL (8.6-10.3); Carbon Dioxide 26 mEq/L (23-29); Chloride 106 mEq/L (98-107); Glucose 196 mg/dL (70-105); Magnesium 1.7 mg/dL (1.6-2.6); Osmolality,Calculated 288 (280-300); Sodium 136 mEq/L (136-145); eGFR For African Americans > 60 (> 60); eGFR For Non-African Americans > 60 (> 60)
[2021-11-04 17:34] LABS: Platelet Estimate Marked Increase (Normal)
[2021-11-04] MEDS: Colchicine 0.6 MG TABLET PO SCH ×2 (17:45→18:29)
[2021-11-04] MEDS: Insulin LISPRO 300 UNITS/3 ML VIAL SUBQ SCH ×2 (17:45→17:47)
[2021-11-04] MEDS: Aspirin 81 MG TAB.CHEW PO SCH (17:45)
[2021-11-04] MEDS: Furosemide 40 MG TABLET PO SCH (17:46)
[2021-11-04] MEDS: allopurinoL 300 MG TABLET PO SCH (17:46)
[2021-11-04] MEDS: polyethylene glycoL 3350 17 GM POWD.PACK PO SCH (17:46)
[2021-11-04] MEDS: traZODone 50 MG TABLET PO SCH (18:30)
[2021-11-04] MEDS: Albumin Human 5% 12.5 GM/250 ML IV.SOLN IVPB PRN ×6 (20:25→22:45)
[2021-11-04 20:40] LABS: ABG Base Excess 1 mEq/L (-2 to 3); ABG HCO3 25 mEq/L (21-27); ABG Oxygen Saturation 99 % (95-98); ABG PCO2 33 mmHg (35-45); ABG PH 7.47 pH Units (7.32-7.45); ABG PO2 111 mmHg (85-104); ABG TCO2 26 mEq/L (20-26); Blood Gas VT 550 cc
[2021-11-04] MEDS: 0.9 % Sodium Chloride 1,000 ML IVC SCH (23:09)
[2021-11-04] MEDS: CeFAZolin 2,000 MG/120 ML BAG IVPB SCH (23:09)
[2021-11-05 00:38] LABS: ABG Base Excess 1 mEq/L (-2 to 3); ABG HCO3 25 mEq/L (21-27); ABG Oxygen Saturation 94 % (95-98); ABG PCO2 33 mmHg (35-45); ABG PH 7.48 pH Units (7.32-7.45); ABG PO2 64 mmHg (85-104); ABG TCO2 26 mEq/L (20-26); Blood Gas VT 550 cc
[2021-11-05] MEDS: FentaNYL (PF) 1,000 MCG/100 ML IV.SOLN IVC SCH ×2 (01:48→08:55)
[2021-11-05 04:03] LABS: INR 1.3; Prothrombin Time 14.7 Seconds (9.4-12.1)
[2021-11-05 04:06] LABS: Activated Partial Thrombo Time 23.4 Seconds (26.0-36.0)
[2021-11-05 04:22] LABS: BUN/Creatinine Ratio 29 (6-26); Blood Urea Nitrogen 16 mg/dL (8-23); Calcium 8.4 mg/dL (8.6-10.3); Carbon Dioxide 27 mEq/L (23-29); Chloride 104 mEq/L (98-107); Glucose 157 mg/dL (70-105); Magnesium 1.8 mg/dL (1.6-2.6); Osmolality,Calculated 290 (280-300); Potassium 3.8 mEq/L (3.5-5.1); Sodium 138 mEq/L (136-145); eGFR For African Americans > 60 (> 60); eGFR For Non-African Americans > 60 (> 60)
[2021-11-05 05:20] LABS: ABG Base Excess 5 mEq/L (-2 to 3); ABG HCO3 29 mEq/L (21-27); ABG Oxygen Saturation 94 % (95-98); ABG PCO2 37 mmHg (35-45); ABG PO2 65 mmHg (85-104); ABG TCO2 30 mEq/L (20-26); Blood Gas Modality ASSIST CONTROL; Blood Gas VT 550 cc
[2021-11-05] MEDS: cefTRIAXone 2,000 MG in 0.9 % Sodium Chloride Mini Bag 100 ML IVPB SCH (06:02)
[2021-11-05] MEDS: *HR* Heparin 5,000 UNIT/ML VIAL SQ SCH ×3 (06:02→20:29)
[2021-11-05] MEDS: Norepinephrine 4 MG/254 ML IV.SOLN IVC SCH ×2 (06:48→15:19)
[2021-11-05] MEDS: polyethylene glycoL 3350 17 GM POWD.PACK PO SCH (07:16)
[2021-11-05] MEDS: Chlorhexidine Rinse 15 ML MOUTHWASH MM SCH ×2 (07:16→20:30)
[2021-11-05] MEDS: Furosemide 40 MG TABLET PO SCH (07:16)
[2021-11-05 07:17] LABS: Basophils % 0.1 %; Hematocrit 22.3 % (35.3-44.9); Lymphocytes # 1.8 K/mcL (0.6-4.6); Lymphocytes % 12.3 %; Mean Corpuscular HGB Conc 32.7 g/dL (31.6-35.5); Mean Corpuscular Hemoglobin 31.9 pg (28.0-33.3); Mean Corpuscular Volume 97.4 fL (83.0-100.0); Mean Platelet Volume 9.2 fL (9.4-12.4); Monocytes # 1.1 K/mcL (0.0-1.3); Monocytes % 7.6 %; Neutrophils # 11.5 K/mcL (1.6-8.9); Platelet Count 430 K/mcL (140-400); Red Blood Count 2.29 M/mcL (3.82-4.97); Red Cell Distribution Width 14.8 % (11.5-14.5); White Blood Count 14.5 K/mcL (4.3-11.1)
[2021-11-05] MEDS: Aspirin 81 MG TAB.CHEW PO SCH (07:17)
[2021-11-05] MEDS: Colchicine 0.6 MG TABLET PO SCH ×2 (07:17→20:30)
[2021-11-05] MEDS: allopurinoL 300 MG TABLET PO SCH (07:17)
[2021-11-05 07:19] LABS: Hemoglobin 7.3 g/dL (11.5-15.4)
[2021-11-05] MEDS: CeFAZolin 2,000 MG/120 ML BAG IVPB SCH ×3 (07:23→23:50)
[2021-11-05] MEDS: Insulin LISPRO 300 UNITS/3 ML VIAL SUBQ SCH ×3 (07:31→20:30)
[2021-11-05] MEDS ORDERED: Heparin 15,000 UNIT in 0.9 % Sodium Chloride 500 ML IV ONE (07:45)
[2021-11-05] MEDS ORDERED: Norepinephrine 4 MG in 0.9 % Sodium Chloride 250 ML IVC PRN (07:45)
[2021-11-05] MEDS: Pantoprazole 40 MG VIAL IVP SCH (07:53)
[2021-11-05] MEDS ORDERED: del Nido Cardioplegia Solution PF SCH (08:00)
[2021-11-05] MEDS ORDERED: del Nido Cardioplegia Solution PF ONE (08:00)
[2021-11-05] MEDS: Midazolam HCl 50 MG/100 ML IV.SOLN IVC SCH (08:59)
[2021-11-05 10:53] LABS: ABG Base Excess -6 mEq/L (-2 to 3); ABG HCO3 19 mEq/L (21-27); ABG Oxygen Saturation 97 % (95-98); ABG PCO2 29 mmHg (35-45); ABG PH 7.41 pH Units (7.32-7.45); ABG PO2 85 mmHg (85-104); ABG TCO2 19 mEq/L (20-26); Blood Gas Modality ASSIST CONTROL; Blood Gas VT 500 cc
[2021-11-05] MEDS ORDERED: Amiodarone Premix 150 MG/100 ML BAG IVPB ONE (12:36)
[2021-11-05] MEDS: Dexmedetomidine HCl 400 MCG/100 ML MLS IVC SCH ×2 (12:43→18:02)
[2021-11-05] MEDS ORDERED: *HR* OxyCODONE/APAP 5/325 TABLET PO PRN (13:32)
[2021-11-05] MEDS ORDERED: Dextrose Gel 15 GM/37.5 ML TUBE PO PRN ×2 (14:15)
[2021-11-05] MEDS ORDERED: *HR* Dextrose 50 % in Water (Syg) 50 ML SYRINGE IVP PRN (14:15)
[2021-11-05] MEDS ORDERED: D5% in Water 1,000 ML IVC PRN (14:15)
[2021-11-05] MEDS: 0.9 % Sodium Chloride 1,000 ML IVC SCH (14:55)
[2021-11-05] MEDS: *HR* OxyCODONE/APAP 5/325 TABLET PO PRN (15:54)
[2021-11-05] MEDS: *HR* HYDROmorphone 2 MG/ML SYRINGE IVP PRN (18:14)
[2021-11-05 18:45] LABS: ABG Base Excess -1 mEq/L (-2 to 3); ABG HCO3 24 mEq/L (21-27); ABG Oxygen Saturation 90 % (95-98); ABG PCO2 38 mmHg (35-45); ABG PO2 57 mmHg (85-104); ABG TCO2 25 mEq/L (20-26)
[2021-11-05] MEDS ORDERED: Bumetanide 1 MG/4 ML VIAL IVP ONE (20:01)
[2021-11-05] MEDS ORDERED: 0.9 % Sodium Chloride 250 ML ONE (20:13)
[2021-11-05] MEDS: traZODone 50 MG TABLET PO SCH (20:30)
[2021-11-06 01:18] LABS: Hematocrit 26.5 % (35.3-44.9); Hemoglobin 8.8 g/dL (11.5-15.4)
[2021-11-06] MEDS: Norepinephrine 4 MG/254 ML IV.SOLN IVC SCH (06:10)
[2021-11-06] MEDS: *HR* HYDROmorphone 2 MG/ML SYRINGE IVP PRN (06:15)
[2021-11-06] MEDS: *HR* Heparin 5,000 UNIT/ML VIAL SQ SCH ×3 (06:15→21:39)
[2021-11-06 06:49] LABS: Basophils # 0.1 K/mcL (0.0-0.2); Basophils % 0.3 %; Eosinophils % 0.2 %; Hematocrit 27.2 % (35.3-44.9); Hemoglobin 8.8 g/dL (11.5-15.4); Immature Granulocytes % 0.9 % (0-4); Lymphocytes # 2.7 K/mcL (0.6-4.6); Lymphocytes % 13.8 %; Mean Corpuscular HGB Conc 32.4 g/dL (31.6-35.5); Mean Corpuscular Hemoglobin 31.8 pg (28.0-33.3); Mean Corpuscular Volume 98.2 fL (83.0-100.0); Mean Platelet Volume 9.3 fL (9.4-12.4); Monocytes # 1.4 K/mcL (0.0-1.3); Monocytes % 7.4 %; Platelet Count 433 K/mcL (140-400); Red Blood Count 2.77 M/mcL (3.82-4.97); Red Cell Distribution Width 14.8 % (11.5-14.5); Segmented Neutrophils % 77.4 %; White Blood Count 19.4 K/mcL (4.3-11.1)
[2021-11-06] MEDS: CeFAZolin 2,000 MG/120 ML BAG IVPB SCH ×3 (08:26→23:39)
[2021-11-06] MEDS: Pantoprazole 40 MG VIAL IVP SCH (08:26)
[2021-11-06] MEDS: Chlorhexidine Rinse 15 ML MOUTHWASH MM SCH ×2 (08:26→19:33)
[2021-11-06] MEDS: Furosemide 40 MG TABLET PO SCH (08:38)
[2021-11-06] MEDS: allopurinoL 300 MG TABLET PO SCH (08:38)
[2021-11-06] MEDS: Colchicine 0.6 MG TABLET PO SCH ×2 (08:38→19:34)
[2021-11-06] MEDS: Aspirin 81 MG TAB.CHEW PO SCH (08:39)
[2021-11-06] MEDS: Insulin LISPRO 300 UNITS/3 ML VIAL SUBQ SCH ×4 (08:39→19:35)
[2021-11-06 08:53] LABS: BUN/Creatinine Ratio 22 (6-26); Blood Urea Nitrogen 11 mg/dL (8-23); Calcium 8.7 mg/dL (8.6-10.3); Carbon Dioxide 25 mEq/L (23-29); Chloride 103 mEq/L (98-107); Glucose 158 mg/dL (70-105); Osmolality,Calculated 291 (280-300); Potassium 3.2 mEq/L (3.5-5.1); Sodium 139 mEq/L (136-145); eGFR For African Americans > 60 (> 60); eGFR For Non-African Americans > 60 (> 60)
[2021-11-06] MEDS: polyethylene glycoL 3350 17 GM POWD.PACK PO SCH (09:18)
[2021-11-06] MEDS: QUEtiapine Fumarate 25 MG TABLET PO SCH ×2 (09:18→19:33)
[2021-11-06] MEDS: Potassium Chloride 40 MEQ/200 ML BAG IVPB PRN (09:42)
[2021-11-06] MEDS: *HR* OxyCODONE/APAP 5/325 TABLET PO PRN (11:19)
[2021-11-06] MEDS: *HR* HYDROmorphone (PF) 1 MG/ML SYRINGE IVP PRN (11:41)
[2021-11-06] MEDS ORDERED: Lidocaine Viscous Oral Soln 15 ML SOLUTION ONE (13:23)
[2021-11-06] MEDS ORDERED: Lidocaine Viscous Oral Soln 15 ML SOLUTION MM ONE (14:05)
[2021-11-06] MEDS ORDERED: *HR* Midazolam HCl 5 MG/5 ML VIAL IVP ONE (14:15)
[2021-11-06] MEDS: Midazolam HCl 50 MG/100 ML IV.SOLN IVC SCH (16:39)
[2021-11-06] MEDS: 0.9 % Sodium Chloride 1,000 ML IVC SCH (16:43)
[2021-11-06] MEDS: traZODone 50 MG TABLET PO SCH (19:33)
[2021-11-06] MEDS: Dexmedetomidine HCl 400 MCG/100 ML MLS IVC SCH (20:11)
[2021-11-06] MEDS ORDERED: MOM Conc 10 ML UD.LIQ PO ONE (21:00)
[2021-11-07] MEDS: Norepinephrine 4 MG/254 ML IV.SOLN IVC SCH (00:54)
[2021-11-07] MEDS: Acetaminophen 325 MG TABLET PO PRN (01:10)
[2021-11-07 03:51] LABS: Hematocrit 26.5 % (35.3-44.9); Hemoglobin 8.5 g/dL (11.5-15.4); Mean Corpuscular HGB Conc 32.1 g/dL (31.6-35.5); Mean Corpuscular Hemoglobin 31.6 pg (28.0-33.3); Mean Corpuscular Volume 98.5 fL (83.0-100.0); Mean Platelet Volume 9.4 fL (9.4-12.4); Platelet Count 379 K/mcL (140-400); Red Blood Count 2.69 M/mcL (3.82-4.97); Red Cell Distribution Width 14.9 % (11.5-14.5); White Blood Count 18.3 K/mcL (4.3-11.1)
[2021-11-07 04:08] LABS: BUN/Creatinine Ratio 27 (6-26); Blood Urea Nitrogen 14 mg/dL (8-23); Calcium 8.6 mg/dL (8.6-10.3); Carbon Dioxide 27 mEq/L (23-29); Chloride 104 mEq/L (98-107); Glucose 201 mg/dL (70-105); Magnesium 1.8 mg/dL (1.6-2.6); Osmolality,Calculated 290 (280-300); Potassium 3.3 mEq/L (3.5-5.1); Sodium 137 mEq/L (136-145); eGFR For African Americans > 60 (> 60); eGFR For Non-African Americans > 60 (> 60)
[2021-11-07] MEDS: *HR* Heparin 5,000 UNIT/ML VIAL SQ SCH ×3 (05:34→21:57)
[2021-11-07] MEDS: Insulin LISPRO 300 UNITS/3 ML VIAL SUBQ SCH ×4 (07:59→19:49)
[2021-11-07 08:15] LABS: ABG Base Excess 3 mEq/L (-2 to 3); ABG HCO3 26 mEq/L (21-27); ABG Oxygen Saturation 94 % (95-98); ABG PCO2 32 mmHg (35-45); ABG PH 7.53 pH Units (7.32-7.45); ABG PO2 62 mmHg (85-104); ABG TCO2 27 mEq/L (20-26)
[2021-11-07] MEDS: CeFAZolin 2,000 MG/120 ML BAG IVPB SCH ×3 (08:55→23:48)
[2021-11-07] MEDS: Bumetanide 1 MG/4 ML VIAL IVP SCH ×2 (08:55→17:42)
[2021-11-07] MEDS: Pantoprazole 40 MG VIAL IVP SCH (08:55)
[2021-11-07] MEDS: Chlorhexidine Rinse 15 ML MOUTHWASH MM SCH ×2 (08:56→19:49)
[2021-11-07] MEDS ORDERED: *HR* Midazolam HCl 5 MG/5 ML VIAL IVP ONE (09:47)
[2021-11-07] MEDS ORDERED: Lidocaine Viscous Oral Soln 15 ML SOLUTION ONE (09:51)
[2021-11-07] MEDS: allopurinoL 300 MG TABLET PO SCH (10:35)
[2021-11-07] MEDS: Aspirin 81 MG TAB.CHEW PO SCH (10:35)
[2021-11-07] MEDS: Colchicine 0.6 MG TABLET PO SCH ×2 (10:35→19:48)
[2021-11-07] MEDS: polyethylene glycoL 3350 17 GM POWD.PACK PO SCH (10:35)
[2021-11-07] MEDS: QUEtiapine Fumarate 25 MG TABLET PO SCH ×2 (10:35→19:48)
[2021-11-07] MEDS: Dexmedetomidine HCl 400 MCG/100 ML MLS IVC SCH (19:30)
[2021-11-07] MEDS: *HR* OxyCODONE/APAP 5/325 TABLET PO PRN (19:48)
[2021-11-07] MEDS: traZODone 50 MG TABLET PO SCH (19:49)
[2021-11-08] MEDS: *HR* OxyCODONE/APAP 5/325 TABLET PO PRN (03:21)
[2021-11-08 04:01] LABS: Basophils % 0.3 %; Eosinophils # 0.2 K/mcL (0.0-0.6); Eosinophils % 1.5 %; Hematocrit 25.5 % (35.3-44.9); Hemoglobin 8.5 g/dL (11.5-15.4); Immature Granulocytes % 1.1 % (0-4); Lymphocytes # 2.2 K/mcL (0.6-4.6); Lymphocytes % 16.9 %; Mean Corpuscular HGB Conc 33.3 g/dL (31.6-35.5); Mean Corpuscular Hemoglobin 32.8 pg (28.0-33.3); Mean Corpuscular Volume 98.5 fL (83.0-100.0); Mean Platelet Volume 9.6 fL (9.4-12.4); Monocytes # 0.7 K/mcL (0.0-1.3); Monocytes % 5.7 %; Neutrophils # 9.7 K/mcL (1.6-8.9); Platelet Count 347 K/mcL (140-400); Red Blood Count 2.59 M/mcL (3.82-4.97); Red Cell Distribution Width 14.8 % (11.5-14.5); Segmented Neutrophils % 74.5 %
[2021-11-08 04:13] LABS: BUN/Creatinine Ratio 22 (6-26); Blood Urea Nitrogen 11 mg/dL (8-23); Calcium 8.3 mg/dL (8.6-10.3); Carbon Dioxide 31 mEq/L (23-29); Chloride 104 mEq/L (98-107); Glucose 106 mg/dL (70-105); Osmolality,Calculated 292 (280-300); Potassium 3.1 mEq/L (3.5-5.1); Sodium 141 mEq/L (136-145); eGFR For African Americans > 60 (> 60); eGFR For Non-African Americans > 60 (> 60)
[2021-11-08] MEDS: *HR* Heparin 5,000 UNIT/ML VIAL SQ SCH ×3 (06:45→23:02)
[2021-11-08] MEDS: Potassium Chloride 40 MEQ/200 ML BAG IVPB PRN (06:48)
[2021-11-08] MEDS: Bumetanide 1 MG/4 ML VIAL IVP SCH ×2 (07:47→16:23)
[2021-11-08] MEDS: Aspirin 81 MG TAB.CHEW PO SCH (07:47)
[2021-11-08] MEDS: Colchicine 0.6 MG TABLET PO SCH ×2 (07:47→20:33)
[2021-11-08] MEDS: Chlorhexidine Rinse 15 ML MOUTHWASH MM SCH ×2 (07:47→20:31)
[2021-11-08] MEDS: Pantoprazole 40 MG VIAL IVP SCH (07:47)
[2021-11-08] MEDS: polyethylene glycoL 3350 17 GM POWD.PACK PO SCH (07:48)
[2021-11-08] MEDS: allopurinoL 300 MG TABLET PO SCH (07:48)
[2021-11-08] MEDS: Insulin LISPRO 300 UNITS/3 ML VIAL SUBQ SCH ×4 (07:48→20:36)
[2021-11-08] MEDS: QUEtiapine Fumarate 25 MG TABLET PO SCH ×2 (07:48→20:35)
[2021-11-08] MEDS: CeFAZolin 2,000 MG/120 ML BAG IVPB SCH ×3 (07:50→23:02)
[2021-11-08] MEDS: Dexmedetomidine HCl 400 MCG/100 ML MLS IVC SCH (19:15)
[2021-11-08] MEDS: traZODone 50 MG TABLET PO SCH (20:35)
[2021-11-09] MEDS: *HR* Heparin 5,000 UNIT/ML VIAL SQ SCH ×2 (05:09→14:09)
[2021-11-09] MEDS: Acetaminophen 325 MG TABLET PO PRN (06:40)
[2021-11-09 07:13] LABS: VBG Ionized Calcium 1.16 mmol/L (1.15-1.35)
[2021-11-09] MEDS: Insulin LISPRO 300 UNITS/3 ML VIAL SUBQ SCH ×2 (07:51→12:42)
[2021-11-09] MEDS: CeFAZolin 2,000 MG/120 ML BAG IVPB SCH (07:54)
[2021-11-09] MEDS: Aspirin 81 MG TAB.CHEW PO SCH (07:57)
[2021-11-09] MEDS: Colchicine 0.6 MG TABLET PO SCH (07:57)
[2021-11-09] MEDS: Bumetanide 1 MG/4 ML VIAL IVP SCH (07:57)
[2021-11-09] MEDS: Chlorhexidine Rinse 15 ML MOUTHWASH MM SCH (07:57)
[2021-11-09] MEDS: Pantoprazole 40 MG VIAL IVP SCH (07:58)
[2021-11-09] MEDS: *HR* OxyCODONE/APAP 5/325 TABLET PO PRN (08:04)
[2021-11-09 08:15] LABS: Basophils # 0.1 K/mcL (0.0-0.2); Basophils % 0.5 %; Eosinophils # 0.3 K/mcL (0.0-0.6); Eosinophils % 2.8 %; Hematocrit 26.6 % (35.3-44.9); Hemoglobin 8.4 g/dL (11.5-15.4); Lymphocytes # 1.8 K/mcL (0.6-4.6); Lymphocytes % 14.7 %; Mean Corpuscular HGB Conc 31.6 g/dL (31.6-35.5); Mean Corpuscular Hemoglobin 31.5 pg (28.0-33.3); Mean Corpuscular Volume 99.6 fL (83.0-100.0); Mean Platelet Volume 9.7 fL (9.4-12.4); Monocytes # 0.8 K/mcL (0.0-1.3); Monocytes % 6.6 %; Neutrophils # 9.2 K/mcL (1.6-8.9); Platelet Count 341 K/mcL (140-400); Red Blood Count 2.67 M/mcL (3.82-4.97); Red Cell Distribution Width 14.8 % (11.5-14.5); Segmented Neutrophils % 74.4 %; White Blood Count 12.3 K/mcL (4.3-11.1)
[2021-11-09 09:37] LABS: Alanine Aminotransferase 7 Units/L (7-52); Albumin 2.6 g/dL (3.5-5.7); Albumin/Globulin Ratio 1.1 (1.1-2.2); Alkaline Phosphatase 56 Units/L (34-104); Aspartate Amino Transferase 22 Units/L (13-39); BUN/Creatinine Ratio 25 (6-26); Bilirubin,Total 0.4 mg/dL (0.3-1.0); Blood Urea Nitrogen 12 mg/dL (8-23); Calcium 8.4 mg/dL (8.6-10.3); Carbon Dioxide 29 mEq/L (23-29); Chloride 104 mEq/L (98-107); Globulin 2.3 g/dL (2.4-3.5); Glucose 98 mg/dL (70-105); Magnesium 1.7 mg/dL (1.6-2.6); Osmolality,Calculated 288 (280-300); Phosphorous 2.6 mg/dL (2.7-4.5); Potassium 3.6 mEq/L (3.5-5.1); Sodium 139 mEq/L (136-145); Total Protein 4.9 g/dL (6.4-8.9); eGFR For African Americans > 60 (> 60); eGFR For Non-African Americans > 60 (> 60)
[2021-11-09] MEDS: polyethylene glycoL 3350 17 GM POWD.PACK PO SCH (09:49)
[2021-11-09] MEDS: allopurinoL 300 MG TABLET PO SCH (09:51)
[2021-11-09] MEDS: QUEtiapine Fumarate 25 MG TABLET PO SCH ×2 (09:53→22:19)
[2021-11-09] MEDS: *HR* HYDROmorphone (PF) 1 MG/ML SYRINGE IVP PRN (10:31)
[2021-11-09] MEDS: Ipratropium/Albuterol Neb 3 ML IH SCH (16:10)
[2021-11-09] MEDS: cefTRIAXone 2,000 MG in 0.9 % Sodium Chloride Mini Bag 100 ML IVPB SCH (17:11)
[2021-11-09] MEDS ORDERED: cefTRIAXone 2,000 MG in 0.9 % Sodium Chloride Mini Bag 100 ML IVPB SCH (18:00)
[2021-11-09] MEDS ORDERED: Ondansetron ODT 4 MG TAB.RAPDIS SL PRN (21:19)
[2021-11-09] MEDS: traZODone 50 MG TABLET PO SCH (22:19)
[2021-11-10] MEDS: Ipratropium/Albuterol Neb 3 ML IH SCH ×5 (00:01→23:43)
[2021-11-10 05:55] LABS: Basophils # 0.1 K/mcL (0.0-0.2); Basophils % 0.5 %; Eosinophils # 0.4 K/mcL (0.0-0.6); Eosinophils % 3.1 %; Hematocrit 25.3 % (35.3-44.9); Immature Granulocytes % 1.3 % (0-4); Lymphocytes % 16.7 %; Mean Corpuscular HGB Conc 31.6 g/dL (31.6-35.5); Mean Corpuscular Hemoglobin 31.6 pg (28.0-33.3); Mean Platelet Volume 10.1 fL (9.4-12.4); Monocytes # 0.9 K/mcL (0.0-1.3); Monocytes % 7.4 %; Neutrophils # 8.7 K/mcL (1.6-8.9); Platelet Count 345 K/mcL (140-400); Red Blood Count 2.53 M/mcL (3.82-4.97); Red Cell Distribution Width 14.9 % (11.5-14.5); White Blood Count 12.2 K/mcL (4.3-11.1)
[2021-11-10] MEDS: QUEtiapine Fumarate 25 MG TABLET PO SCH ×2 (09:31→20:22)
[2021-11-10] MEDS: *HR* OxyCODONE/APAP 5/325 TABLET PO PRN ×2 (11:33→17:48)
[2021-11-10] MEDS ORDERED: Acetaminophen 325 MG TABLET PO PRN (11:37)
[2021-11-10] MEDS ORDERED: Ipratropium/Albuterol Neb 3 ML IH PRN (11:58)
[2021-11-10] MEDS: allopurinoL 300 MG TABLET PO SCH (13:41)
[2021-11-10] MEDS: Aspirin 81 MG TAB.CHEW PO SCH (13:41)
[2021-11-10] MEDS: *HR* Heparin 5,000 UNIT/ML VIAL SQ SCH ×2 (13:42→20:21)
[2021-11-10] MEDS: Bumetanide 1 MG/4 ML VIAL IVP SCH ×2 (13:43→17:47)
[2021-11-10] MEDS: Insulin LISPRO 300 UNITS/3 ML VIAL SUBQ SCH (16:57)
[2021-11-10] MEDS: cefTRIAXone 2,000 MG in 0.9 % Sodium Chloride Mini Bag 100 ML IVPB SCH (17:47)
[2021-11-10] MEDS: Melatonin 3 MG TABLET PO PRN (20:22)
[2021-11-10] MEDS: traZODone 50 MG TABLET PO SCH (20:22)
[2021-11-11] MEDS: *HR* OxyCODONE/APAP 5/325 TABLET PO PRN ×4 (01:56→23:41)
[2021-11-11] MEDS: Ipratropium/Albuterol Neb 3 ML IH SCH ×4 (04:10→20:29)
[2021-11-11] MEDS: *HR* Heparin 5,000 UNIT/ML VIAL SQ SCH ×3 (05:19→20:58)
[2021-11-11 05:44] LABS: Basophils # 0.1 K/mcL (0.0-0.2); Basophils % 0.5 %; Eosinophils # 0.5 K/mcL (0.0-0.6); Eosinophils % 4.1 %; Hematocrit 26.7 % (35.3-44.9); Hemoglobin 8.2 g/dL (11.5-15.4); Immature Granulocytes % 1.5 % (0-4); Lymphocytes # 2.6 K/mcL (0.6-4.6); Lymphocytes % 22.3 %; Mean Corpuscular HGB Conc 30.7 g/dL (31.6-35.5); Mean Corpuscular Hemoglobin 31.1 pg (28.0-33.3); Mean Corpuscular Volume 101.1 fL (83.0-100.0); Mean Platelet Volume 9.6 fL (9.4-12.4); Monocytes # 0.9 K/mcL (0.0-1.3); Monocytes % 7.4 %; Neutrophils # 7.5 K/mcL (1.6-8.9); Platelet Count 341 K/mcL (140-400); Red Blood Count 2.64 M/mcL (3.82-4.97); Red Cell Distribution Width 15.1 % (11.5-14.5); Segmented Neutrophils % 64.2 %; White Blood Count 11.7 K/mcL (4.3-11.1)
[2021-11-11 06:04] LABS: BUN/Creatinine Ratio 15 (6-26); Blood Urea Nitrogen 8 mg/dL (8-23); Calcium 8.5 mg/dL (8.6-10.3); Carbon Dioxide 31 mEq/L (23-29); Chloride 103 mEq/L (98-107); Glucose 109 mg/dL (70-105); Osmolality,Calculated 291 (280-300); Potassium 3.3 mEq/L (3.5-5.1); Sodium 141 mEq/L (136-145); eGFR For African Americans > 60 (> 60); eGFR For Non-African Americans > 60 (> 60)
[2021-11-11] MEDS: allopurinoL 300 MG TABLET PO SCH (07:37)
[2021-11-11] MEDS: QUEtiapine Fumarate 25 MG TABLET PO SCH ×2 (07:37→20:58)
[2021-11-11] MEDS: Bumetanide 1 MG/4 ML VIAL IVP SCH ×2 (07:38→17:28)
[2021-11-11] MEDS: Aspirin 81 MG TAB.CHEW PO SCH (07:38)
[2021-11-11] MEDS: Insulin LISPRO 300 UNITS/3 ML VIAL SUBQ SCH ×3 (09:19→17:42)
[2021-11-11] MEDS: predniSONE 20 MG TABLET PO SCH (17:12)
[2021-11-11] MEDS: cefTRIAXone 2,000 MG in 0.9 % Sodium Chloride Mini Bag 100 ML IVPB SCH (17:29)
[2021-11-11] MEDS: traZODone 50 MG TABLET PO SCH (20:58)
[2021-11-11] MEDS: Melatonin 3 MG TABLET PO PRN (20:58)
[2021-11-12] MEDS: Ipratropium/Albuterol Neb 3 ML IH SCH ×3 (03:59→15:36)
[2021-11-12 05:17] LABS: Basophils % 0.2 %; Hematocrit 24.7 % (35.3-44.9); Hemoglobin 8.2 g/dL (11.5-15.4); Immature Granulocytes % 1.2 % (0-4); Lymphocytes # 0.9 K/mcL (0.6-4.6); Lymphocytes % 8.9 %; Mean Corpuscular HGB Conc 33.2 g/dL (31.6-35.5); Mean Corpuscular Hemoglobin 33.1 pg (28.0-33.3); Mean Corpuscular Volume 99.6 fL (83.0-100.0); Mean Platelet Volume 9.7 fL (9.4-12.4); Monocytes # 0.3 K/mcL (0.0-1.3); Monocytes % 2.6 %; Neutrophils # 8.9 K/mcL (1.6-8.9); Platelet Count 367 K/mcL (140-400); Red Blood Count 2.48 M/mcL (3.82-4.97); Red Cell Distribution Width 15.1 % (11.5-14.5); Segmented Neutrophils % 87.1 %; White Blood Count 10.2 K/mcL (4.3-11.1)
[2021-11-12 05:36] LABS: BUN/Creatinine Ratio 19 (6-26); Blood Urea Nitrogen 10 mg/dL (8-23); Calcium 8.7 mg/dL (8.6-10.3); Carbon Dioxide 33 mEq/L (23-29); Chloride 100 mEq/L (98-107); Glucose 204 mg/dL (70-105); Osmolality,Calculated 293 (280-300); Potassium 3.6 mEq/L (3.5-5.1); Sodium 139 mEq/L (136-145); eGFR For African Americans > 60 (> 60); eGFR For Non-African Americans > 60 (> 60)
[2021-11-12] MEDS: *HR* Heparin 5,000 UNIT/ML VIAL SQ SCH ×3 (07:30→20:48)
[2021-11-12] MEDS: predniSONE 20 MG TABLET PO SCH (08:51)
[2021-11-12] MEDS: QUEtiapine Fumarate 25 MG TABLET PO SCH ×2 (08:51→20:47)
[2021-11-12] MEDS: Bumetanide 1 MG/4 ML VIAL IVP SCH ×2 (08:51→17:36)
[2021-11-12] MEDS: Aspirin 81 MG TAB.CHEW PO SCH (08:52)
[2021-11-12] MEDS: allopurinoL 300 MG TABLET PO SCH (08:52)
[2021-11-12] MEDS: Insulin LISPRO 300 UNITS/3 ML VIAL SUBQ SCH ×4 (08:53→20:48)
[2021-11-12] MEDS: cefTRIAXone 2,000 MG in 0.9 % Sodium Chloride Mini Bag 100 ML IVPB SCH (17:36)
[2021-11-12] MEDS: traZODone 50 MG TABLET PO SCH (20:47)
[2021-11-13 04:14] LABS: Basophils % 0.2 %; Eosinophils % 0.1 %; Hematocrit 25.9 % (35.3-44.9); Hemoglobin 8.2 g/dL (11.5-15.4); Immature Granulocytes % 1.3 % (0-4); Lymphocytes # 1.8 K/mcL (0.6-4.6); Lymphocytes % 16.4 %; Mean Corpuscular HGB Conc 31.7 g/dL (31.6-35.5); Mean Corpuscular Volume 101.2 fL (83.0-100.0); Mean Platelet Volume 9.9 fL (9.4-12.4); Monocytes # 0.6 K/mcL (0.0-1.3); Monocytes % 5.6 %; Neutrophils # 8.5 K/mcL (1.6-8.9); Platelet Count 390 K/mcL (140-400); Red Blood Count 2.56 M/mcL (3.82-4.97); Red Cell Distribution Width 15.3 % (11.5-14.5); Segmented Neutrophils % 76.4 %; White Blood Count 11.1 K/mcL (4.3-11.1)
[2021-11-13 04:23] LABS: BUN/Creatinine Ratio 19 (6-26); Blood Urea Nitrogen 10 mg/dL (8-23); Calcium 8.8 mg/dL (8.6-10.3); Carbon Dioxide 35 mEq/L (23-29); Chloride 101 mEq/L (98-107); Glucose 146 mg/dL (70-105); Magnesium 1.8 mg/dL (1.6-2.6); Osmolality,Calculated 290 (280-300); Phosphorous 2.9 mg/dL (2.7-4.5); Potassium 3.4 mEq/L (3.5-5.1); Sodium 139 mEq/L (136-145); eGFR For African Americans > 60 (> 60); eGFR For Non-African Americans > 60 (> 60)
[2021-11-13] MEDS: *HR* Heparin 5,000 UNIT/ML VIAL SQ SCH ×3 (06:07→21:12)
[2021-11-13] MEDS: Insulin LISPRO 300 UNITS/3 ML VIAL SUBQ SCH ×4 (08:18→21:11)
[2021-11-13] MEDS: predniSONE 20 MG TABLET PO SCH (08:24)
[2021-11-13] MEDS: QUEtiapine Fumarate 25 MG TABLET PO SCH ×2 (08:24→21:12)
[2021-11-13] MEDS: allopurinoL 300 MG TABLET PO SCH (08:25)
[2021-11-13] MEDS: Aspirin 81 MG TAB.CHEW PO SCH (08:25)
[2021-11-13] MEDS: Bumetanide 1 MG/4 ML VIAL IVP SCH ×2 (08:25→18:32)
[2021-11-13] MEDS ORDERED: *HR* Metoprolol 5 MG/5 ML VIAL IVP ONE (10:11)
[2021-11-13] MEDS: cefTRIAXone 2,000 MG in 0.9 % Sodium Chloride Mini Bag 100 ML IVPB SCH (18:31)
[2021-11-13] MEDS: traZODone 50 MG TABLET PO SCH (21:12)
[2021-11-14 05:07] LABS: Basophils % 0.3 %; Eosinophils # 0.1 K/mcL (0.0-0.6); Hematocrit 27.8 % (35.3-44.9); Hemoglobin 8.7 g/dL (11.5-15.4); Immature Granulocytes % 1.3 % (0-4); Lymphocytes # 3.6 K/mcL (0.6-4.6); Lymphocytes % 25.2 %; Mean Corpuscular HGB Conc 31.3 g/dL (31.6-35.5); Mean Corpuscular Hemoglobin 31.6 pg (28.0-33.3); Mean Corpuscular Volume 101.1 fL (83.0-100.0); Mean Platelet Volume 9.9 fL (9.4-12.4); Monocytes # 1.1 K/mcL (0.0-1.3); Monocytes % 7.5 %; Neutrophils # 9.3 K/mcL (1.6-8.9); Nucleated Red Blood Cells 0.1 /100 WBC (0); Platelet Count 444 K/mcL (140-400); Red Blood Count 2.75 M/mcL (3.82-4.97); Red Cell Distribution Width 15.8 % (11.5-14.5); Segmented Neutrophils % 64.7 %; White Blood Count 14.3 K/mcL (4.3-11.1)
[2021-11-14 05:26] LABS: BUN/Creatinine Ratio 21 (6-26); Blood Urea Nitrogen 12 mg/dL (8-23); Calcium 8.9 mg/dL (8.6-10.3); Carbon Dioxide 34 mEq/L (23-29); Chloride 99 mEq/L (98-107); Glucose 92 mg/dL (70-105); Osmolality,Calculated 287 (280-300); Potassium 3.2 mEq/L (3.5-5.1); Sodium 139 mEq/L (136-145); eGFR For African Americans > 60 (> 60); eGFR For Non-African Americans > 60 (> 60)
[2021-11-14] MEDS: *HR* Enoxaparin 100 MG/ML SYRINGE SQ SCH ×2 (06:00→17:55)
[2021-11-14] MEDS: *HR* OxyCODONE/APAP 5/325 TABLET PO PRN (06:00)
[2021-11-14] MEDS: Insulin LISPRO 300 UNITS/3 ML VIAL SUBQ SCH ×4 (07:47→20:16)
[2021-11-14] MEDS: Bumetanide 1 MG/4 ML VIAL IVP SCH ×2 (08:28→17:54)
[2021-11-14] MEDS: allopurinoL 300 MG TABLET PO SCH (08:29)
[2021-11-14] MEDS: QUEtiapine Fumarate 25 MG TABLET PO SCH ×2 (08:29→20:03)
[2021-11-14] MEDS: Aspirin 81 MG TAB.CHEW PO SCH (08:29)
[2021-11-14] MEDS ORDERED: Bumetanide 1 MG/4 ML VIAL IVP ONE ×2 (09:26→12:30)
[2021-11-14 17:03] LABS: Bilirubin,Urine Negative (Negative); Blood,Urine Negative (Negative); Clarity,Urine Clear (Clear); Color,Urine Light-Yellow (Yellow); Glucose,Urine (UA) Normal (Normal); Ketones,Urine Negative (Negative); Leukocyte Esterase,Urine Negative (Negative); Nitrite,Urine Negative (Negative); PH,Urine 6.5 pH Units (5.0-8.0); Protein,Urine Negative (Neg-Trace); Specific Gravity,Urine 1.011 (1.010-1.025); Urobilinogen,Urine Normal (Normal)
[2021-11-14] MEDS: cefTRIAXone 2,000 MG in 0.9 % Sodium Chloride Mini Bag 100 ML IVPB SCH (17:55)
[2021-11-14] MEDS: traZODone 50 MG TABLET PO SCH (20:03)
[2021-11-15 00:36] LABS: Basophils # 0.1 K/mcL (0.0-0.2); Basophils % 0.4 %; Eosinophils # 0.3 K/mcL (0.0-0.6); Eosinophils % 1.8 %; Hematocrit 28.4 % (35.3-44.9); Hemoglobin 8.7 g/dL (11.5-15.4); Immature Granulocytes % 1.2 % (0-4); Lymphocytes # 3.1 K/mcL (0.6-4.6); Lymphocytes % 21.4 %; Mean Corpuscular HGB Conc 30.6 g/dL (31.6-35.5); Mean Corpuscular Hemoglobin 31.4 pg (28.0-33.3); Mean Corpuscular Volume 102.5 fL (83.0-100.0); Mean Platelet Volume 9.9 fL (9.4-12.4); Monocytes # 0.8 K/mcL (0.0-1.3); Monocytes % 5.7 %; Neutrophils # 10.1 K/mcL (1.6-8.9); Nucleated Red Blood Cells 0.2 /100 WBC (0); Platelet Count 439 K/mcL (140-400); Red Blood Count 2.77 M/mcL (3.82-4.97); Red Cell Distribution Width 15.6 % (11.5-14.5); Segmented Neutrophils % 69.5 %; White Blood Count 14.5 K/mcL (4.3-11.1)
[2021-11-15 00:44] LABS: BUN/Creatinine Ratio 21 (6-26); Blood Urea Nitrogen 13 mg/dL (8-23); Calcium 8.3 mg/dL (8.6-10.3); Carbon Dioxide 34 mEq/L (23-29); Chloride 101 mEq/L (98-107); Glucose 123 mg/dL (70-105); Osmolality,Calculated 291 (280-300); Sodium 140 mEq/L (136-145); eGFR For African Americans > 60 (> 60); eGFR For Non-African Americans > 60 (> 60)
[2021-11-15] MEDS: *HR* Enoxaparin 100 MG/ML SYRINGE SQ SCH ×2 (05:17→17:14)
[2021-11-15] MEDS: Insulin LISPRO 300 UNITS/3 ML VIAL SUBQ SCH ×4 (07:54→19:23)
[2021-11-15] MEDS: allopurinoL 300 MG TABLET PO SCH (09:55)
[2021-11-15] MEDS: Bumetanide 1 MG/4 ML VIAL IVP SCH ×2 (09:56→17:14)
[2021-11-15] MEDS: Aspirin 81 MG TAB.CHEW PO SCH (09:56)
[2021-11-15] MEDS: QUEtiapine Fumarate 25 MG TABLET PO SCH ×2 (09:56→19:32)
[2021-11-15] MEDS ORDERED: *HR* Digoxin 0.5 MG/2 ML AMPUL IVP SCH (16:23)
[2021-11-15] MEDS: Magnesium Oxide 400 MG TABLET PO SCH ×2 (16:58→19:32)
[2021-11-15] MEDS: cefTRIAXone 2,000 MG in 0.9 % Sodium Chloride Mini Bag 100 ML IVPB SCH (17:15)
[2021-11-15] MEDS: Melatonin 3 MG TABLET PO PRN (19:32)
[2021-11-15] MEDS: traZODone 50 MG TABLET PO SCH (19:32)
[2021-11-15] MEDS: *HR* OxyCODONE/APAP 5/325 TABLET PO PRN (19:32)
[2021-11-16] MEDS: *HR* OxyCODONE/APAP 5/325 TABLET PO PRN ×2 (02:13→09:05)
[2021-11-16 02:41] LABS: Basophils # 0.1 K/mcL (0.0-0.2); Basophils % 0.4 %; Eosinophils # 0.4 K/mcL (0.0-0.6); Eosinophils % 2.6 %; Hematocrit 30.1 % (35.3-44.9); Hemoglobin 9.3 g/dL (11.5-15.4); Immature Granulocytes % 0.9 % (0-4); Lymphocytes # 3.8 K/mcL (0.6-4.6); Lymphocytes % 26.9 %; Mean Corpuscular HGB Conc 30.9 g/dL (31.6-35.5); Mean Corpuscular Hemoglobin 31.8 pg (28.0-33.3); Mean Corpuscular Volume 103.1 fL (83.0-100.0); Mean Platelet Volume 9.9 fL (9.4-12.4); Monocytes # 0.8 K/mcL (0.0-1.3); Monocytes % 5.9 %; Neutrophils # 8.9 K/mcL (1.6-8.9); Nucleated Red Blood Cells 0.1 /100 WBC (0); Platelet Count 428 K/mcL (140-400); Red Blood Count 2.92 M/mcL (3.82-4.97); Red Cell Distribution Width 16.2 % (11.5-14.5); Segmented Neutrophils % 63.3 %
[2021-11-16 02:55] LABS: BUN/Creatinine Ratio 20 (6-26); Blood Urea Nitrogen 11 mg/dL (8-23); Calcium 8.5 mg/dL (8.6-10.3); Carbon Dioxide 31 mEq/L (23-29); Chloride 102 mEq/L (98-107); Glucose 102 mg/dL (70-105); Magnesium 2.1 mg/dL (1.6-2.6); Osmolality,Calculated 288 (280-300); Potassium 4.2 mEq/L (3.5-5.1); Sodium 139 mEq/L (136-145); eGFR For African Americans > 60 (> 60); eGFR For Non-African Americans > 60 (> 60)
[2021-11-16] MEDS: *HR* Enoxaparin 100 MG/ML SYRINGE SQ SCH ×2 (06:07→17:44)
[2021-11-16] MEDS: Insulin LISPRO 300 UNITS/3 ML VIAL SUBQ SCH ×4 (08:55→20:53)
[2021-11-16] MEDS: Bumetanide 1 MG/4 ML VIAL IVP SCH ×2 (08:55→17:45)
[2021-11-16] MEDS: Magnesium Oxide 400 MG TABLET PO SCH ×2 (08:56→20:55)
[2021-11-16] MEDS: QUEtiapine Fumarate 25 MG TABLET PO SCH ×2 (08:56→20:55)
[2021-11-16] MEDS: *HR* Digoxin 0.125 MG TABLET PO SCH (08:56)
[2021-11-16] MEDS: Aspirin 81 MG TAB.CHEW PO SCH (08:56)
[2021-11-16] MEDS: allopurinoL 300 MG TABLET PO SCH (08:56)
[2021-11-16] MEDS: cefTRIAXone 2,000 MG in 0.9 % Sodium Chloride Mini Bag 100 ML IVPB SCH (17:45)
[2021-11-16] MEDS: traZODone 50 MG TABLET PO SCH (20:55)
[2021-11-17 04:56] LABS: Basophils # 0.1 K/mcL (0.0-0.2); Basophils % 0.3 %; Eosinophils # 0.3 K/mcL (0.0-0.6); Eosinophils % 1.7 %; Hematocrit 30.2 % (35.3-44.9); Hemoglobin 9.1 g/dL (11.5-15.4); Immature Granulocytes % 0.9 % (0-4); Lymphocytes # 2.3 K/mcL (0.6-4.6); Lymphocytes % 14.3 %; Mean Corpuscular HGB Conc 30.1 g/dL (31.6-35.5); Mean Corpuscular Volume 102.7 fL (83.0-100.0); Mean Platelet Volume 9.9 fL (9.4-12.4); Monocytes # 0.9 K/mcL (0.0-1.3); Monocytes % 5.6 %; Neutrophils # 12.5 K/mcL (1.6-8.9); Platelet Count 406 K/mcL (140-400); Red Blood Count 2.94 M/mcL (3.82-4.97); Red Cell Distribution Width 16.5 % (11.5-14.5); Segmented Neutrophils % 77.2 %; White Blood Count 16.2 K/mcL (4.3-11.1)
[2021-11-17 05:11] LABS: BUN/Creatinine Ratio 17 (6-26); Blood Urea Nitrogen 10 mg/dL (8-23); Carbon Dioxide 30 mEq/L (23-29); Chloride 100 mEq/L (98-107); Glucose 136 mg/dL (70-105); Magnesium 2.2 mg/dL (1.6-2.6); Osmolality,Calculated 281 (280-300); Potassium 4.3 mEq/L (3.5-5.1); Sodium 135 mEq/L (136-145); eGFR For African Americans > 60 (> 60); eGFR For Non-African Americans > 60 (> 60)
[2021-11-17] MEDS: *HR* Enoxaparin 100 MG/ML SYRINGE SQ SCH (06:00)
[2021-11-17] MEDS: Insulin LISPRO 300 UNITS/3 ML VIAL SUBQ SCH ×3 (07:50→16:18)
[2021-11-17] MEDS ORDERED: Bumetanide 1 MG/4 ML VIAL IVP SCH ×2 (10:00→17:00)
[2021-11-17] MEDS: allopurinoL 300 MG TABLET PO SCH (10:24)
[2021-11-17] MEDS: QUEtiapine Fumarate 25 MG TABLET PO SCH (10:24)
[2021-11-17] MEDS: Aspirin 81 MG TAB.CHEW PO SCH (10:24)
[2021-11-17] MEDS: *HR* Digoxin 0.125 MG TABLET PO SCH (10:24)
[2021-11-17] MEDS: Magnesium Oxide 400 MG TABLET PO SCH (10:24)
[2021-11-17] MEDS: *HR* OxyCODONE/APAP 5/325 TABLET PO PRN (10:29)
[2021-11-17] MEDS ORDERED: Sennosides 8.6 MG TABLET PO SCH (11:30)
[2021-11-17 14:21] LABS: Influenza A PCR Negative (Negative); Influenza B PCR Negative (Negative); Resp. Syncytial Virus PCR Negative (Negative); SARS-CoV-2 by PCR (In House) Negative (Negative)
== END 2021-11-17 17:38 | DRG 710 ==
LOC: CDU 19:49 → SUATTDRO 19:49 → 2NNU 21:06 → 2ANU 11-01 11:58 → ICNU 11-04 06:18 → 2NNU 11-09 16:31
PROVIDERS: ADMIT Internal Medicine; ATTEND Internal Medicine
PROC: ENDOBRF (2021-11-07 10:00)